=== PATIENT | female | born 1935 | race African-American/Black ===

== ENCOUNTER 2017-04-03 15:00 | Emergency (ER) | payer MEDICARE ==
[2017-04-03 16:26] LABS: ADD MAN DIFF? YES; BASO % 0 % (0-3); EOS # 0.1 x10^3/uL (0.0-0.7); EOS % 0 % (0-3); HEMATOCRIT 44.7 % (36.0-47.0); HEMOGLOBIN 14.4 g/dL (12.0-15.5); LYMPH # 1.2 x10^3/uL (1.0-4.8); LYMPH % 7 % (24-48); MEAN CORPUSCULAR HEMOGLOBIN 26 pg (25-35); MEAN CORPUSCULAR HGB CONC 32 g/dL (31-37); MEAN CORPUSCULAR VOLUME 79 fL (79-100); MONO # 1.3 x10^3/uL (0.0-1.1); MONO % 7 % (0-9); NEUT # 14.7 x10^3uL (1.8-7.7); NEUT % 85 % (31-73); PLATELET COUNT 330 x10^3/uL (140-400); RED BLOOD COUNT 5.63 x10^6/uL (3.50-5.40); RED CELL DISTRIBUTION WIDTH 18.1 % (11.5-14.5); WHITE BLOOD COUNT 17.3 x10^3/uL (4.0-11.0)
[2017-04-03 16:37] LABS: INR 1.3 (0.8-1.1); PROTHROMBIN TIME PATIENT 15.1 SEC (11.7-14.0)
[2017-04-03 16:47] LABS: ANION GAP 8 (6-14); BLOOD UREA NITROGEN 42 mg/dL (7-20); BUN/CREATININE RATIO 12 (6-20); CALCIUM 9.7 mg/dL (8.5-10.1); CARBON DIOXIDE 29 mmol/L (21-32); CHLORIDE 93 mmol/L (98-107); CREATININE 3.4 mg/dL (0.6-1.0); GFR 15.7; GLUCOSE 103 mg/dL (70-99); POTASSIUM 5.3 mmol/L (3.5-5.1); SODIUM 130 mmol/L (136-145)
[2017-04-03 16:52] LABS: ALBUMIN 3.5 g/dL (3.4-5.0); ALBUMIN/GLOBULIN RATIO 0.7 (1.0-1.7); ALK PHOS 129 U/L (46-116); ALT (SGPT) 16 U/L (14-59); AST (SGOT) 23 U/L (15-37); TOTAL BILIRUBIN 0.5 mg/dL (0.2-1.0); TOTAL PROTEIN 8.6 g/dL (6.4-8.2)
[2017-04-03 16:59] LABS: % BANDS 2 % (0-9); % BASOS 1 % (0-3); % LYMPHS 11 % (24-48); % MONOS 10 % (0-10); % SEGS 76 % (35-66); ANISOCYTOSIS SLIGHT; PLT ESTIMATE ADEQUATE (ADEQUATE)
[2017-04-03 17:21] LABS: INFLUENZA B PATIENT NEGATIVE (NEGATIVE)
[2017-04-03 17:22] LABS: OBC FLU VALID
[2017-04-03 17:32] LABS: INFLUENZA A PATIENT NEGATIVE (NEGATIVE)
== END 2017-04-03 19:18 | disposition home or self-care (01) ==
LOC: ER 15:00
DX: R04.0 Epistaxis (principal); E11.22 Type 2 diabetes mellitus with diabetic chronic kidney disease; N18.6 End stage renal disease; E78.00 Pure hypercholesterolemia, unspecified; I12.0 Hypertensive chronic kidney disease with stage 5 chronic kidney disease or end stage renal disease; Z90.49 Acquired absence of other specified parts of digestive tract; Z90.710 Acquired absence of both cervix and uterus; Z99.2 Dependence on renal dialysis; Z88.1 Allergy status to other antibiotic agents; Z88.8 Allergy status to other drugs, medicaments and biological substances; Z91.041 Radiographic dye allergy status
CPT/HCPCS: 30901; 36415; 71045; 80053; 85007; 85025; 85610; 87804; 87804-59; 99285-25

== ENCOUNTER 2017-04-04 13:01 | Inpatient (IN) | payer MEDICARE ==
[2017-04-04 14:48] LABS: HEMATOCRIT 42.5 % (36.0-47.0); HEMOGLOBIN 13.5 g/dL (12.0-15.5); MEAN CORPUSCULAR HEMOGLOBIN 25 pg (25-35); MEAN CORPUSCULAR HGB CONC 32 g/dL (31-37); MEAN CORPUSCULAR VOLUME 79 fL (79-100); PLATELET COUNT 325 x10^3/uL (140-400); RED BLOOD COUNT 5.38 x10^6/uL (3.50-5.40); RED CELL DISTRIBUTION WIDTH 17.9 % (11.5-14.5); WHITE BLOOD COUNT 13.6 x10^3/uL (4.0-11.0)
[2017-04-04 15:02] LABS: ANION GAP 13 (6-14); BLOOD UREA NITROGEN 54 mg/dL (7-20); BUN/CREATININE RATIO 14 (6-20); CALCIUM 9.4 mg/dL (8.5-10.1); CARBON DIOXIDE 26 mmol/L (21-32); CHLORIDE 91 mmol/L (98-107); GLUCOSE 123 mg/dL (70-99); POTASSIUM 5.2 mmol/L (3.5-5.1); SODIUM 130 mmol/L (136-145)
[2017-04-04 15:06] LABS: ALBUMIN 3.2 g/dL (3.4-5.0); ALBUMIN/GLOBULIN RATIO 0.7 (1.0-1.7); ALK PHOS 121 U/L (46-116); ALT (SGPT) 11 U/L (14-59); AST (SGOT) 23 U/L (15-37); TOTAL BILIRUBIN 0.5 mg/dL (0.2-1.0); TOTAL PROTEIN 7.9 g/dL (6.4-8.2)
[2017-04-04] MEDS ORDERED: ONDANSETRON PF 4 MG/2 ML VIAL. IV (16:30)
[2017-04-04] MEDS ORDERED: fentaNYL PF VIAL 100 MCG/2 ML VIAL IV (16:30)
[2017-04-04 20:31] LABS: POC GLUCOSE 69 mg/dL (70-99)
[2017-04-04 20:34] LABS: POC GLUCOSE 87 mg/dL (70-99)
[2017-04-04] MEDS ORDERED: ACETAMINOPHEN 500 MG TABLET PO (21:00)
[2017-04-04] MEDS ORDERED: DEXTROSE 50% 25 GM / 50ML DISP.SYRIN. IV (21:00)
[2017-04-04] MEDS: CARVEDILOL 6.25 MG TABLET. PO (21:26)
[2017-04-05 04:19] LABS: POC GLUCOSE 119 mg/dL (70-99)
[2017-04-05 06:05] LABS: ADD MAN DIFF? NO
[2017-04-05 06:29] LABS: ANION GAP 14 (6-14); BLOOD UREA NITROGEN 57 mg/dL (7-20); CALCIUM 9.3 mg/dL (8.5-10.1); CARBON DIOXIDE 23 mmol/L (21-32); CHLORIDE 92 mmol/L (98-107); CREATININE 4.2 mg/dL (0.6-1.0); GFR 12.3; GLUCOSE 148 mg/dL (70-99); POTASSIUM 5.4 mmol/L (3.5-5.1); SODIUM 129 mmol/L (136-145)
[2017-04-05 06:32] LABS: BASO # 0.1 x10^3/uL (0.0-0.2); BASO % 0 % (0-3); EOS % 0 % (0-3); HEMATOCRIT 44.6 % (36.0-47.0); HEMOGLOBIN 13.8 g/dL (12.0-15.5); LYMPH # 0.9 x10^3/uL (1.0-4.8); LYMPH % 4 % (24-48); MEAN CORPUSCULAR HEMOGLOBIN 25 pg (25-35); MEAN CORPUSCULAR HGB CONC 31 g/dL (31-37); MEAN CORPUSCULAR VOLUME 79 fL (79-100); MONO # 1.8 x10^3/uL (0.0-1.1); MONO % 8 % (0-9); NEUT # 18.9 x10^3uL (1.8-7.7); NEUT % 87 % (31-73); PLATELET COUNT 336 x10^3/uL (140-400); RED BLOOD COUNT 5.64 x10^6/uL (3.50-5.40); WHITE BLOOD COUNT 21.6 x10^3/uL (4.0-11.0)
[2017-04-05] MEDS ORDERED: fentaNYL PF VIAL 100 MCG/2 ML VIAL IV (07:45)
[2017-04-05] MEDS ORDERED: ONDANSETRON PF 4 MG/2 ML VIAL. IV (07:45)
[2017-04-05 08:03] LABS: POC GLUCOSE 127 mg/dL (70-99)
[2017-04-05] MEDS: ACETAMINOPHEN 500 MG TABLET PO ×2 (08:11→20:20)
[2017-04-05] MEDS: LISINOPRIL 10 MG TABLET PO (08:12)
[2017-04-05 08:24] LABS: BILIRUBIN,URINE NEGATIVE (NEG); CLARITY,URINE CLEAR; COLOR,URINE YELLOW; GLUCOSE,URINE NEGATIVE (NEG); NITRITE,URINE NEGATIVE (NEG); PROTEIN,URINE >=300 mg/dL (NEG-TRACE)
[2017-04-05 08:44] LABS: INFLUENZA A PATIENT NEGATIVE (NEGATIVE); INFLUENZA B PATIENT NEGATIVE (NEGATIVE); OBC FLU VALID
[2017-04-05] MEDS ORDERED: ASPIRIN ENTERIC COATED 81 MG TABLET.DR. PO (09:00)
[2017-04-05] MEDS ORDERED: MEROPENEM 500 MG in IV NORMAL SALINE 50ML 50 ML IV (09:00)
[2017-04-05] MEDS: IPRATRPIUM/ALBUTEROL 0.5/2.5MG 3 ML NEBU. NEB ×4 (09:00→19:58)
[2017-04-05] MEDS ORDERED: TACROLIMUS 1 MG CAPSULE PO (09:00)
[2017-04-05 09:10] LABS: BACTERIA,URINE 0 /HPF (0-FEW); RBC,URINE 0 /HPF (0-2); SQUAMOUS EPITHELIAL CELL,UR FEW /LPF; WBC,URINE 0 /HPF (0-4)
[2017-04-05] MEDS ORDERED: diphenhydrAMINE 50 MG/ML VIAL IV ×2 (09:30)
[2017-04-05] MEDS ORDERED: IV NORMAL SALINE 1000ML BAG 1,000 ML IV ×2 (09:30)
[2017-04-05] MEDS ORDERED: 0.9 % SODIUM CHLORIDE 10 ML DISP.SYRIN. IV ×2 (09:30)
[2017-04-05] MEDS ORDERED: DIALYSIS PATIENT. MC ×5 (09:30)
[2017-04-05] MEDS: PANTOPRAZOLE 40 MG TABLET.DR. PO (09:34)
[2017-04-05] MEDS: TACROLIMUS 0.5 MG CAPSULE PO ×2 (09:34→20:20)
[2017-04-05] MEDS: predniSONE 5 MG TABLET PO (09:34)
[2017-04-05] MEDS: LEVOTHYROXINE 125 MCG TABLET PO (09:34)
[2017-04-05] MEDS: POLYETHYLENE GLYCOL 3350 17 GM PACKET. PO (09:35)
[2017-04-05] MEDS: TIMOLOL 0.25% OPHTH SOLUTION 5ML BOTTLE. OD (09:35)
[2017-04-05] MEDS ORDERED: MAGNESIUM SULFATE 2GM 50 ML IV (09:45)
[2017-04-05] MEDS: MEROPENEM IV Push 500 MG VIAL. IVP (14:04)
[2017-04-05] MEDS: VANCOMYCIN PER PHARMACY MC (14:06)
[2017-04-05] MEDS: VANCOMYCIN IV (14:17)
[2017-04-05] MEDS: NACL IV (14:17)
[2017-04-05] MEDS: DEXTROSE IV (14:17)
[2017-04-05] MEDS: IOHEXOL 300 MG/ML 100ML VIAL. IV (16:30)
[2017-04-05] MEDS ORDERED: CONTRAST GIVEN MC (16:30)
[2017-04-05 18:33] LABS: POC GLUCOSE 129 mg/dL (70-99)
[2017-04-05] MEDS: FOLIC/VIT B COMP W-C (RENAL) TABLET. PO (20:20)
[2017-04-05] MEDS: LACTOBACILLUS RHAMNOSUS GG 1 CAPSULE. PO (20:20)
[2017-04-05] MEDS: CETIRIZINE HCL 10 MG TABLET. PO (20:21)
[2017-04-05 20:28] LABS: POC GLUCOSE 167 mg/dL (70-99)
[2017-04-05 20:37] LABS: POC GLUCOSE 172 mg/dL (70-99)
[2017-04-05] MEDS: CARVEDILOL 6.25 MG TABLET. PO (21:14)
[2017-04-06 03:01] LABS: POC GLUCOSE 98 mg/dL (70-99)
[2017-04-06] MEDS: diphenhydrAMINE HCL 25 MG CAPSULE PO (04:04)
[2017-04-06] MEDS: methylPREDNISolone SOD SUCC PF 125 MG/2 ML VIAL. IV (04:04)
[2017-04-06 04:34] LABS: ADD MAN DIFF? NO
[2017-04-06 04:38] LABS: BASO # 0.1 x10^3/uL (0.0-0.2); BASO % 1 % (0-3); EOS # 0.1 x10^3/uL (0.0-0.7); EOS % 0 % (0-3); HEMATOCRIT 39.4 % (36.0-47.0); HEMOGLOBIN 12.4 g/dL (12.0-15.5); LYMPH # 1.3 x10^3/uL (1.0-4.8); LYMPH % 7 % (24-48); MEAN CORPUSCULAR HEMOGLOBIN 25 pg (25-35); MEAN CORPUSCULAR HGB CONC 31 g/dL (31-37); MEAN CORPUSCULAR VOLUME 80 fL (79-100); MONO # 2.5 x10^3/uL (0.0-1.1); MONO % 12 % (0-9); NEUT # 16.4 x10^3uL (1.8-7.7); NEUT % 80 % (31-73); PLATELET COUNT 306 x10^3/uL (140-400); RED BLOOD COUNT 4.96 x10^6/uL (3.50-5.40); RED CELL DISTRIBUTION WIDTH 17.5 % (11.5-14.5); WHITE BLOOD COUNT 20.4 x10^3/uL (4.0-11.0)
[2017-04-06 05:02] LABS: MAGNESIUM 2.1 mg/dL (1.8-2.4)
[2017-04-06 05:06] LABS: ALBUMIN 2.7 g/dL (3.4-5.0); ANION GAP 8 (6-14); BLOOD UREA NITROGEN 28 mg/dL (7-20); CALCIUM 8.8 mg/dL (8.5-10.1); CARBON DIOXIDE 32 mmol/L (21-32); CHLORIDE 94 mmol/L (98-107); GFR 18.2; GLUCOSE 90 mg/dL (70-99); PHOSPHORUS 5.1 mg/dL (2.6-4.7); POTASSIUM 4.1 mmol/L (3.5-5.1); SODIUM 134 mmol/L (136-145)
[2017-04-06] MEDS: PANTOPRAZOLE 40 MG TABLET.DR. PO (05:51)
[2017-04-06] MEDS: LEVOTHYROXINE 125 MCG TABLET PO (05:51)
[2017-04-06] MEDS: ACETAMINOPHEN 500 MG TABLET PO ×2 (05:57→20:55)
[2017-04-06] MEDS ORDERED: IV NORMAL SALINE 1000ML BAG 1,000 ML IV ×2 (07:03)
[2017-04-06] MEDS ORDERED: diphenhydrAMINE 50 MG/ML VIAL IV ×2 (07:15)
[2017-04-06] MEDS ORDERED: 0.9 % SODIUM CHLORIDE 10 ML DISP.SYRIN. IV ×2 (07:15)
[2017-04-06] MEDS ORDERED: DIALYSIS PATIENT. MC (07:15)
[2017-04-06] MEDS: IPRATRPIUM/ALBUTEROL 0.5/2.5MG 3 ML NEBU. NEB ×4 (07:33→20:22)
[2017-04-06 07:48] LABS: POC GLUCOSE 197 mg/dL (70-99)
[2017-04-06] MEDS: POLYETHYLENE GLYCOL 3350 17 GM PACKET. PO (09:00)
[2017-04-06] MEDS: MEROPENEM IV Push 500 MG VIAL. IVP (12:43)
[2017-04-06] MEDS: TIMOLOL 0.25% OPHTH SOLUTION 5ML BOTTLE. OD (12:43)
[2017-04-06] MEDS: predniSONE 5 MG TABLET PO (12:44)
[2017-04-06] MEDS: LACTOBACILLUS RHAMNOSUS GG 1 CAPSULE. PO ×2 (12:44→20:49)
[2017-04-06] MEDS: TACROLIMUS 0.5 MG CAPSULE PO ×2 (12:44→20:48)
[2017-04-06] MEDS: LISINOPRIL 10 MG TABLET PO (12:48)
[2017-04-06 12:50] LABS: POC GLUCOSE 163 mg/dL (70-99)
[2017-04-06 16:44] LABS: POC GLUCOSE 293 mg/dL (70-99)
[2017-04-06] MEDS: VANCOMYCIN RANDOM LEVEL. MC (17:00)
[2017-04-06] MEDS ORDERED: DEXTROSE 50% 25 GM / 50ML DISP.SYRIN. IV (18:30)
[2017-04-06] MEDS: INSULIN ASPART 300 UNITS/3 ML INSULN.PEN SQ (18:44)
[2017-04-06] MEDS: VANCOMYCIN PER PHARMACY MC ×2 (19:30→19:33)
[2017-04-06] MEDS: VANCOMYCIN 500 MG in IV DEXTROSE 5% 100 ML IV (20:48)
[2017-04-06] MEDS: FOLIC/VIT B COMP W-C (RENAL) TABLET. PO (20:49)
[2017-04-06] MEDS: CETIRIZINE HCL 10 MG TABLET. PO (20:49)
[2017-04-06] MEDS: CARVEDILOL 6.25 MG TABLET. PO (20:49)
[2017-04-07 05:18] LABS: ADD MAN DIFF? NO
[2017-04-07 06:04] LABS: MAGNESIUM 2.4 mg/dL (1.8-2.4)
[2017-04-07 06:07] LABS: ALBUMIN 3.1 g/dL (3.4-5.0); ANION GAP 14 (6-14); BLOOD UREA NITROGEN 19 mg/dL (7-20); CALCIUM 9.2 mg/dL (8.5-10.1); CARBON DIOXIDE 27 mmol/L (21-32); CHLORIDE 93 mmol/L (98-107); CREATININE 2.1 mg/dL (0.6-1.0); GFR 27.4; GLUCOSE 283 mg/dL (70-99); PHOSPHORUS 4.2 mg/dL (2.6-4.7); POTASSIUM 4.1 mmol/L (3.5-5.1); SODIUM 134 mmol/L (136-145)
[2017-04-07 06:12] LABS: BASO # 0.1 x10^3/uL (0.0-0.2); BASO % 0 % (0-3); EOS % 0 % (0-3); HEMOGLOBIN 13.2 g/dL (12.0-15.5); LYMPH # 0.9 x10^3/uL (1.0-4.8); LYMPH % 5 % (24-48); MEAN CORPUSCULAR HEMOGLOBIN 24 pg (25-35); MEAN CORPUSCULAR HGB CONC 30 g/dL (31-37); MEAN CORPUSCULAR VOLUME 81 fL (79-100); MONO # 0.2 x10^3/uL (0.0-1.1); MONO % 1 % (0-9); NEUT % 94 % (31-73); PLATELET COUNT 358 x10^3/uL (140-400); RED BLOOD COUNT 5.43 x10^6/uL (3.50-5.40); RED CELL DISTRIBUTION WIDTH 18.5 % (11.5-14.5); WHITE BLOOD COUNT 18.2 x10^3/uL (4.0-11.0)
[2017-04-07] MEDS: LEVOTHYROXINE 125 MCG TABLET PO (07:23)
[2017-04-07] MEDS: POLYETHYLENE GLYCOL 3350 17 GM PACKET. PO (07:42)
[2017-04-07] MEDS: TACROLIMUS 0.5 MG CAPSULE PO ×2 (08:03→20:32)
[2017-04-07] MEDS: predniSONE 5 MG TABLET PO (08:03)
[2017-04-07] MEDS: LACTOBACILLUS RHAMNOSUS GG 1 CAPSULE. PO (08:03)
[2017-04-07] MEDS: PANTOPRAZOLE 40 MG TABLET.DR. PO (08:03)
[2017-04-07] MEDS: TIMOLOL 0.25% OPHTH SOLUTION 5ML BOTTLE. OD (08:04)
[2017-04-07] MEDS: LISINOPRIL 10 MG TABLET PO ×3 (08:04→16:00)
[2017-04-07] MEDS: MEROPENEM IV Push 500 MG VIAL. IVP (08:04)
[2017-04-07] MEDS: INSULIN ASPART 300 UNITS/3 ML INSULN.PEN SQ ×4 (08:11→16:56)
[2017-04-07 08:21] LABS: POC GLUCOSE 210 mg/dL (70-99)
[2017-04-07] MEDS: IPRATRPIUM/ALBUTEROL 0.5/2.5MG 3 ML NEBU. NEB ×4 (09:24→19:12)
[2017-04-07 11:38] LABS: POC GLUCOSE 230 mg/dL (70-99)
[2017-04-07] MEDS: ACETAMINOPHEN 500 MG TABLET PO (11:54)
[2017-04-07] MEDS: VANCOMYCIN PER PHARMACY MC (13:02)
[2017-04-07 16:43] LABS: POC GLUCOSE 272 mg/dL (70-99)
[2017-04-07] MEDS: FOLIC/VIT B COMP W-C (RENAL) TABLET. PO (20:32)
[2017-04-07] MEDS: CARVEDILOL 6.25 MG TABLET. PO (20:32)
[2017-04-07] MEDS: CETIRIZINE HCL 10 MG TABLET. PO (20:32)
[2017-04-07 20:44] LABS: POC GLUCOSE 171 mg/dL (70-99)
[2017-04-08 01:50] LABS: POC GLUCOSE 185 mg/dL (70-99)
[2017-04-08] MEDS: LEVOTHYROXINE 125 MCG TABLET PO (05:31)
[2017-04-08] MEDS: PANTOPRAZOLE 40 MG TABLET.DR. PO (05:31)
[2017-04-08 05:57] LABS: ADD MAN DIFF? NO
[2017-04-08 06:14] LABS: BASO # 0.2 x10^3/uL (0.0-0.2); BASO % 1 % (0-3); EOS % 0 % (0-3); HEMATOCRIT 40.7 % (36.0-47.0); HEMOGLOBIN 12.5 g/dL (12.0-15.5); LYMPH # 1.6 x10^3/uL (1.0-4.8); LYMPH % 7 % (24-48); MEAN CORPUSCULAR HEMOGLOBIN 25 pg (25-35); MEAN CORPUSCULAR HGB CONC 31 g/dL (31-37); MEAN CORPUSCULAR VOLUME 80 fL (79-100); MONO # 1.5 x10^3/uL (0.0-1.1); MONO % 7 % (0-9); NEUT # 18.1 x10^3uL (1.8-7.7); NEUT % 85 % (31-73); PLATELET COUNT 390 x10^3/uL (140-400); RED BLOOD COUNT 5.07 x10^6/uL (3.50-5.40); RED CELL DISTRIBUTION WIDTH 17.9 % (11.5-14.5); WHITE BLOOD COUNT 21.4 x10^3/uL (4.0-11.0)
[2017-04-08 06:44] LABS: ALBUMIN 3.1 g/dL (3.4-5.0); ANION GAP 13 (6-14); BLOOD UREA NITROGEN 44 mg/dL (7-20); CALCIUM 9.5 mg/dL (8.5-10.1); CARBON DIOXIDE 26 mmol/L (21-32); CHLORIDE 97 mmol/L (98-107); CREATININE 3.3 mg/dL (0.6-1.0); GFR 16.3; GLUCOSE 137 mg/dL (70-99); PHOSPHORUS 4.1 mg/dL (2.6-4.7); SODIUM 136 mmol/L (136-145)
[2017-04-08 06:47] LABS: MAGNESIUM 2.5 mg/dL (1.8-2.4)
[2017-04-08] MEDS: IPRATRPIUM/ALBUTEROL 0.5/2.5MG 3 ML NEBU. NEB ×4 (07:18→18:07)
[2017-04-08] MEDS: INSULIN ASPART 300 UNITS/3 ML INSULN.PEN SQ ×3 (07:30→16:53)
[2017-04-08 08:22] LABS: POC GLUCOSE 110 mg/dL (70-99)
[2017-04-08] MEDS: LISINOPRIL 10 MG TABLET PO ×2 (08:22→16:50)
[2017-04-08] MEDS: TACROLIMUS 0.5 MG CAPSULE PO ×2 (08:22→20:27)
[2017-04-08] MEDS: predniSONE 5 MG TABLET PO (08:23)
[2017-04-08] MEDS: TIMOLOL 0.25% OPHTH SOLUTION 5ML BOTTLE. OD (08:23)
[2017-04-08] MEDS: MEROPENEM IV Push 500 MG VIAL. IVP (08:23)
[2017-04-08] MEDS: POLYETHYLENE GLYCOL 3350 17 GM PACKET. PO (08:39)
[2017-04-08] MEDS: VANCOMYCIN PER PHARMACY MC (10:10)
[2017-04-08 11:35] LABS: FECAL OB PT POSITIVE (NEG); NEG OBC FOB NEG; POS OBC FOB POS
[2017-04-08] MEDS: ACETAMINOPHEN 500 MG TABLET PO ×2 (11:35→20:32)
[2017-04-08] MEDS: COLESTIPOL HCL 1 GM TABLET PO ×2 (11:35→20:27)
[2017-04-08] MEDS: LACTOBACILLUS RHAMNOSUS GG 1 CAPSULE. PO ×2 (11:35→20:27)
[2017-04-08 12:10] LABS: POC GLUCOSE 135 mg/dL (70-99)
[2017-04-08 16:43] LABS: POC GLUCOSE 210 mg/dL (70-99)
[2017-04-08] MEDS: CARVEDILOL 6.25 MG TABLET. PO (20:27)
[2017-04-08] MEDS: FOLIC/VIT B COMP W-C (RENAL) TABLET. PO (20:27)
[2017-04-08] MEDS: CETIRIZINE HCL 10 MG TABLET. PO (20:28)
[2017-04-08 20:46] LABS: POC GLUCOSE 192 mg/dL (70-99)
[2017-04-08 23:08] LABS: C DIFF BY PCR Negative (Negative)
[2017-04-09] MEDS: LEVOTHYROXINE 125 MCG TABLET PO (04:55)
[2017-04-09] MEDS: PANTOPRAZOLE 40 MG TABLET.DR. PO (04:55)
[2017-04-09 07:23] LABS: POC GLUCOSE 220 mg/dL (70-99)
[2017-04-09] MEDS: IPRATRPIUM/ALBUTEROL 0.5/2.5MG 3 ML NEBU. NEB ×4 (07:25→19:40)
[2017-04-09] MEDS: INSULIN ASPART 300 UNITS/3 ML INSULN.PEN SQ ×3 (07:58→17:02)
[2017-04-09 08:19] LABS: ADD MAN DIFF? NO
[2017-04-09 08:27] LABS: BASO # 0.1 x10^3/uL (0.0-0.2); BASO % 1 % (0-3); EOS % 0 % (0-3); HEMATOCRIT 39.8 % (36.0-47.0); HEMOGLOBIN 12.5 g/dL (12.0-15.5); LYMPH # 1.1 x10^3/uL (1.0-4.8); LYMPH % 6 % (24-48); MEAN CORPUSCULAR HEMOGLOBIN 25 pg (25-35); MEAN CORPUSCULAR HGB CONC 31 g/dL (31-37); MEAN CORPUSCULAR VOLUME 80 fL (79-100); MONO # 1.6 x10^3/uL (0.0-1.1); MONO % 9 % (0-9); NEUT # 14.4 x10^3uL (1.8-7.7); NEUT % 83 % (31-73); PLATELET COUNT 404 x10^3/uL (140-400); RED BLOOD COUNT 4.96 x10^6/uL (3.50-5.40); RED CELL DISTRIBUTION WIDTH 17.6 % (11.5-14.5); WHITE BLOOD COUNT 17.3 x10^3/uL (4.0-11.0)
[2017-04-09 08:45] LABS: ALBUMIN 2.8 g/dL (3.4-5.0); ANION GAP 13 (6-14); BLOOD UREA NITROGEN 52 mg/dL (7-20); CALCIUM 9.5 mg/dL (8.5-10.1); CARBON DIOXIDE 25 mmol/L (21-32); CHLORIDE 99 mmol/L (98-107); CREATININE 3.9 mg/dL (0.6-1.0); GFR 13.4; GLUCOSE 224 mg/dL (70-99); MAGNESIUM 2.4 mg/dL (1.8-2.4); PHOSPHORUS 3.7 mg/dL (2.6-4.7); POTASSIUM 3.8 mmol/L (3.5-5.1); SODIUM 137 mmol/L (136-145)
[2017-04-09] MEDS: POLYETHYLENE GLYCOL 3350 17 GM PACKET. PO (09:00)
[2017-04-09] MEDS: LACTOBACILLUS RHAMNOSUS GG 1 CAPSULE. PO (09:00)
[2017-04-09] MEDS ORDERED: DIALYSIS PATIENT. MC ×2 (09:45)
[2017-04-09] MEDS: COLESTIPOL HCL 1 GM TABLET PO (10:00)
[2017-04-09] MEDS: ACETAMINOPHEN 500 MG TABLET PO ×2 (10:49→22:29)
[2017-04-09 12:50] LABS: POC GLUCOSE 142 mg/dL (70-99)
[2017-04-09] MEDS: predniSONE 5 MG TABLET PO (13:12)
[2017-04-09] MEDS: TACROLIMUS 0.5 MG CAPSULE PO ×2 (13:12→20:45)
[2017-04-09] MEDS: LISINOPRIL 10 MG TABLET PO (13:13)
[2017-04-09] MEDS: CIPROFLOXACIN 0.3% OPHTH SOLUTION 5ML BOTTLE. OU ×3 (13:14→20:45)
[2017-04-09] MEDS: TIMOLOL 0.25% OPHTH SOLUTION 5ML BOTTLE. OD ×2 (13:14→20:44)
[2017-04-09] MEDS: MEROPENEM IV Push 500 MG VIAL. IVP (13:14)
[2017-04-09 16:30] LABS: POC GLUCOSE 250 mg/dL (70-99)
[2017-04-09] MEDS: VANCOMYCIN 500 MG in IV NORMAL SALINE 100ML 100 ML IV (16:58)
[2017-04-09] MEDS: VANCOMYCIN PER PHARMACY MC (17:08)
[2017-04-09 19:59] LABS: POC GLUCOSE 143 mg/dL (70-99)
[2017-04-09] MEDS: FOLIC/VIT B COMP W-C (RENAL) TABLET. PO (20:45)
[2017-04-09] MEDS: CETIRIZINE HCL 10 MG TABLET. PO (20:46)
[2017-04-09] MEDS: CARVEDILOL 6.25 MG TABLET. PO (20:46)
[2017-04-10 04:43] LABS: ADD MAN DIFF? NO
[2017-04-10 04:45] LABS: BASO # 0.1 x10^3/uL (0.0-0.2); BASO % 0 % (0-3); EOS % 0 % (0-3); HEMATOCRIT 40.1 % (36.0-47.0); HEMOGLOBIN 12.4 g/dL (12.0-15.5); LYMPH # 1.4 x10^3/uL (1.0-4.8); LYMPH % 7 % (24-48); MEAN CORPUSCULAR HEMOGLOBIN 25 pg (25-35); MEAN CORPUSCULAR HGB CONC 31 g/dL (31-37); MEAN CORPUSCULAR VOLUME 80 fL (79-100); MONO # 1.3 x10^3/uL (0.0-1.1); MONO % 7 % (0-9); NEUT # 15.9 x10^3uL (1.8-7.7); NEUT % 85 % (31-73); PLATELET COUNT 389 x10^3/uL (140-400); RED BLOOD COUNT 5.03 x10^6/uL (3.50-5.40); RED CELL DISTRIBUTION WIDTH 17.5 % (11.5-14.5); WHITE BLOOD COUNT 18.8 x10^3/uL (4.0-11.0)
[2017-04-10 05:31] LABS: ALBUMIN 2.8 g/dL (3.4-5.0); ANION GAP 9 (6-14); BLOOD UREA NITROGEN 35 mg/dL (7-20); CARBON DIOXIDE 30 mmol/L (21-32); CHLORIDE 98 mmol/L (98-107); CREATININE 2.9 mg/dL (0.6-1.0); GFR 18.9; GLUCOSE 147 mg/dL (70-99); MAGNESIUM 2.2 mg/dL (1.8-2.4); POTASSIUM 3.8 mmol/L (3.5-5.1); SODIUM 137 mmol/L (136-145)
[2017-04-10] MEDS: LEVOTHYROXINE 125 MCG TABLET PO (05:48)
[2017-04-10] MEDS: PANTOPRAZOLE 40 MG TABLET.DR. PO (05:48)
[2017-04-10] MEDS: INSULIN ASPART 300 UNITS/3 ML INSULN.PEN SQ ×2 (07:30→12:09)
[2017-04-10 07:52] LABS: POC GLUCOSE 96 mg/dL (70-99)
[2017-04-10] MEDS: TACROLIMUS 0.5 MG CAPSULE PO (08:14)
[2017-04-10] MEDS: predniSONE 5 MG TABLET PO (08:14)
[2017-04-10] MEDS: TIMOLOL 0.25% OPHTH SOLUTION 5ML BOTTLE. OD (08:15)
[2017-04-10] MEDS: CIPROFLOXACIN 0.3% OPHTH SOLUTION 5ML BOTTLE. OU ×3 (08:15→12:10)
[2017-04-10] MEDS: MEROPENEM IV Push 500 MG VIAL. IVP (08:17)
[2017-04-10] MEDS: POLYETHYLENE GLYCOL 3350 17 GM PACKET. PO (08:29)
[2017-04-10] MEDS: IPRATRPIUM/ALBUTEROL 0.5/2.5MG 3 ML NEBU. NEB ×2 (08:52→11:58)
[2017-04-10] MEDS: ACETAMINOPHEN 500 MG TABLET PO (09:05)
[2017-04-10] MEDS: LISINOPRIL 10 MG TABLET PO ×2 (10:41→15:54)
[2017-04-10 11:47] LABS: POC GLUCOSE 174 mg/dL (70-99)
[2017-04-10] MEDS: CEFPODOXIME PROXETIL 100 MG TABLET. PO (14:19)
[2017-04-10 16:35] LABS: POC GLUCOSE 225 mg/dL (70-99)
[2017-04-10] MEDS ORDERED: LACTOBACILLUS RHAMNOSUS GG 1 CAPSULE. PO (21:00)
[2017-04-10] MEDS ORDERED: TACROLIMUS 0.5 MG CAPSULE PO (21:00)
== END 2017-04-10 16:30 | DRG 871 ==
LOC: ER 13:01 → 5 NORTH 16:20
PROC: 5A1D70Z Performance of Urinary Filtration, Intermittent, Less than 6 Hours Per Day (ICD-10-PCS; principal; 2017-04-05)
PROC: 5A1D70Z Performance of Urinary Filtration, Intermittent, Less than 6 Hours Per Day (ICD-10-PCS; 2017-04-06)
PROC: 5A1D70Z Performance of Urinary Filtration, Intermittent, Less than 6 Hours Per Day (ICD-10-PCS; 2017-04-09)
DX: A41.89 Other specified sepsis (principal); N18.6 End stage renal disease; E43 Unspecified severe protein-calorie malnutrition; I13.2 Hypertensive heart and chronic kidney disease with heart failure and with stage 5 chronic kidney disease, or end stage renal disease; J18.9 Pneumonia, unspecified organism; E46 Unspecified protein-calorie malnutrition; E11.22 Type 2 diabetes mellitus with diabetic chronic kidney disease; E87.5 Hyperkalemia; I50.30 Unspecified diastolic (congestive) heart failure; M41.9 Scoliosis, unspecified; N28.1 Cyst of kidney, acquired; E87.1 Hypo-osmolality and hyponatremia; Z94.0 Kidney transplant status; D63.1 Anemia in chronic kidney disease; D49.0 Neoplasm of unspecified behavior of digestive system; E03.9 Hypothyroidism, unspecified; E55.9 Vitamin D deficiency, unspecified; E78.5 Hyperlipidemia, unspecified; E87.6 Hypokalemia; H40.9 Unspecified glaucoma; I70.0 Atherosclerosis of aorta; J01.90 Acute sinusitis, unspecified; J32.2 Chronic ethmoidal sinusitis; J40 Bronchitis, not specified as acute or chronic; K57.90 Diverticulosis of intestine, part unspecified, without perforation or abscess without bleeding; K59.09 Other constipation; M19.90 Unspecified osteoarthritis, unspecified site; K59.00 Constipation, unspecified; R04.0 Epistaxis; Z88.0 Allergy status to penicillin; Z90.49 Acquired absence of other specified parts of digestive tract; Z90.710 Acquired absence of both cervix and uterus; Z99.2 Dependence on renal dialysis
CPT/HCPCS: 36415; 70220; 70470; 70488; 71045; 71250; 76700; 76856; 80048; 80053; 80069; 80202; 81001; 82274; 82962; 83735; 85007; 85025; 85027; 85610; 87040; 87324; 87804; 87804-59; 93306; 94640; 96374; 96375; 97116-GP; 97162-GP; 97165-GO; 99285; 99285-25; J1815; J2185; J2930; J3370; J7507; J7512; J7620; Q0163; Q9967

== ENCOUNTER 2017-04-26 10:27 | Inpatient (IN) | payer MEDICARE ==
[2017-04-26 10:48] LABS: ADD MAN DIFF? NO
[2017-04-26] MEDS: ACETAMINOPHEN 500 MG TABLET PO ×4 (10:50→20:55)
[2017-04-26] MEDS: IV NORMAL SALINE 500ML BAG 500 ML IV ×2 (10:50)
[2017-04-26 11:01] LABS: ANION GAP 11 (6-14); BLOOD UREA NITROGEN 43 mg/dL (7-20); BUN/CREATININE RATIO 14 (6-20); CALCIUM 9.1 mg/dL (8.5-10.1); CARBON DIOXIDE 28 mmol/L (21-32); CHLORIDE 94 mmol/L (98-107); CREATININE 3.1 mg/dL (0.6-1.0); GFR 17.5; GLUCOSE 129 mg/dL (70-99); INFLUENZA A PATIENT NEGATIVE (NEGATIVE); INFLUENZA B PATIENT NEGATIVE (NEGATIVE); OBC FLU VALID; POTASSIUM 4.7 mmol/L (3.5-5.1); SODIUM 133 mmol/L (136-145)
[2017-04-26 11:08] LABS: ALBUMIN 3.3 g/dL (3.4-5.0); ALBUMIN/GLOBULIN RATIO 0.7 (1.0-1.7); ALK PHOS 135 U/L (46-116); ALT (SGPT) 21 U/L (14-59); AST (SGOT) 29 U/L (15-37); TOTAL BILIRUBIN 0.7 mg/dL (0.2-1.0)
[2017-04-26 11:09] LABS: INR 1.4 (0.8-1.1); PROTHROMBIN TIME PATIENT 16.4 SEC (11.7-14.0)
[2017-04-26 11:09] LABS: LACTIC ACID 1.2 mmol/L (0.4-2.0)
[2017-04-26 11:10] LABS: TROPONINI < 0.017 ng/mL (0.000-0.055)
[2017-04-26 11:10] LABS: BILIRUBIN,URINE MODERATE (NEG); CLARITY,URINE CLOUDY; COLOR,URINE AMBER; GLUCOSE,URINE NEGATIVE (NEG); NITRITE,URINE NEGATIVE (NEG); PARTIAL THROMBOPLASTIN TIME 56 SEC (24-38); PROTEIN,URINE >=300 mg/dL (NEG-TRACE)
[2017-04-26 11:12] LABS: NT-PRO BNP 7015 pg/mL (0-449)
[2017-04-26] MEDS ORDERED: levOFLOXacin PER PHARMACY. MC ×2 (11:15)
[2017-04-26 11:19] LABS: AMORPHOUS SEDIMENT,UR PRESENT /HPF; BACTERIA,URINE FEW /HPF (0-FEW); HYALINE CASTS, URINE MANY /HPF; RBC,URINE OCC /HPF (0-2)
[2017-04-26 11:33] LABS: BASO # 0.1 x10^3/uL (0.0-0.2); BASO % 1 % (0-3); EOS % 0 % (0-3); HEMOGLOBIN 13.3 g/dL (12.0-15.5); LYMPH # 1.3 x10^3/uL (1.0-4.8); LYMPH % 7 % (24-48); MEAN CORPUSCULAR HEMOGLOBIN 25 pg (25-35); MEAN CORPUSCULAR HGB CONC 31 g/dL (31-37); MEAN CORPUSCULAR VOLUME 80 fL (79-100); MONO % 21 % (0-9); NEUT # 13.9 x10^3uL (1.8-7.7); NEUT % 72 % (31-73); PLATELET COUNT 248 x10^3/uL (140-400); RED CELL DISTRIBUTION WIDTH 18.4 % (11.5-14.5); WHITE BLOOD COUNT 19.4 x10^3/uL (4.0-11.0)
[2017-04-26 11:34] LABS: HEMATOCRIT 42.2 % (36.0-47.0)
[2017-04-26] MEDS: AZTREONAM IV Push 2 GM VIAL. IVP ×2 (11:40)
[2017-04-26] MEDS ORDERED: fentaNYL PF VIAL 100 MCG/2 ML VIAL IV ×2 (11:45)
[2017-04-26] MEDS ORDERED: ACETAMINOPHEN 325 MG TABLET. PO ×2 (11:45)
[2017-04-26] MEDS ORDERED: ONDANSETRON PF 4 MG/2 ML VIAL. IV ×2 (11:45)
[2017-04-26] MEDS: VANCOMYCIN 1.5 GM in IV DEXTROSE 5% 500 ML IV (11:47)
[2017-04-26] MEDS ORDERED: AZTREONAM 2 GM in IV DEXTROSE 5% 100 ML IV (12:00)
[2017-04-26] MEDS: IPRATRPIUM/ALBUTEROL 0.5/2.5MG 3 ML NEBU. NEB ×6 (12:18→19:25)
[2017-04-26] MEDS: VANCOMYCIN PER PHARMACY MC ×2 (16:09)
[2017-04-26] MEDS ORDERED: ALBUTEROL SULFATE 2.5 MG/3 ML NEBU. NEB ×2 (17:15)
[2017-04-26 17:29] LABS: POC GLUCOSE 117 mg/dL (70-99)
[2017-04-26] MEDS: CARVEDILOL 6.25 MG TABLET. PO ×2 (18:03)
[2017-04-26] MEDS: FOLIC/VIT B COMP W-C (RENAL) TABLET. PO ×2 (20:55)
[2017-04-26] MEDS: CETIRIZINE HCL 10 MG TABLET. PO ×2 (20:55)
[2017-04-26] MEDS: TACROLIMUS 1 MG CAPSULE PO ×2 (20:55)
[2017-04-26] MEDS: LACTOBACILLUS RHAMNOSUS GG 1 CAPSULE. PO ×2 (20:55)
[2017-04-26] MEDS: AZTREONAM 0.5 GM in IV NORMAL SALINE 50ML 50 ML IV (20:56)
[2017-04-26] MEDS: TIMOLOL 0.25% OPHTH SOLUTION 5ML BOTTLE. OD ×2 (20:56)
[2017-04-26] MEDS ORDERED: AZTREONAM IV Push 1 GM VIAL. IVP ×2 (21:00)
[2017-04-27 04:55] LABS: ADD MAN DIFF? NO
[2017-04-27 05:38] LABS: ALBUMIN 2.7 g/dL (3.4-5.0); ALBUMIN/GLOBULIN RATIO 0.6 (1.0-1.7); ALK PHOS 114 U/L (46-116); ALT (SGPT) 16 U/L (14-59); ANION GAP 15 (6-14); AST (SGOT) 24 U/L (15-37); BLOOD UREA NITROGEN 58 mg/dL (7-20); BUN/CREATININE RATIO 16 (6-20); CALCIUM 8.7 mg/dL (8.5-10.1); CARBON DIOXIDE 23 mmol/L (21-32); CHLORIDE 92 mmol/L (98-107); CREATININE 3.7 mg/dL (0.6-1.0); GFR 14.3; GLUCOSE 55 mg/dL (70-99); POTASSIUM 4.6 mmol/L (3.5-5.1); SODIUM 130 mmol/L (136-145); TOTAL BILIRUBIN 0.6 mg/dL (0.2-1.0); TOTAL PROTEIN 6.9 g/dL (6.4-8.2)
[2017-04-27] MEDS: LEVOTHYROXINE 125 MCG TABLET PO ×2 (06:05)
[2017-04-27] MEDS: ACETAMINOPHEN 500 MG TABLET PO ×4 (06:09→17:56)
[2017-04-27 06:31] LABS: BASO # 0.1 x10^3/uL (0.0-0.2); BASO % 0 % (0-3); EOS % 0 % (0-3); HEMATOCRIT 40.6 % (36.0-47.0); HEMOGLOBIN 12.4 g/dL (12.0-15.5); LYMPH # 1.4 x10^3/uL (1.0-4.8); LYMPH % 6 % (24-48); MEAN CORPUSCULAR HEMOGLOBIN 25 pg (25-35); MEAN CORPUSCULAR HGB CONC 31 g/dL (31-37); MEAN CORPUSCULAR VOLUME 81 fL (79-100); MONO # 3.8 x10^3/uL (0.0-1.1); MONO % 17 % (0-9); NEUT # 17.7 x10^3uL (1.8-7.7); NEUT % 77 % (31-73); PLATELET COUNT 169 x10^3/uL (140-400); RED BLOOD COUNT 5.02 x10^6/uL (3.50-5.40); RED CELL DISTRIBUTION WIDTH 18.6 % (11.5-14.5); WHITE BLOOD COUNT 23.1 x10^3/uL (4.0-11.0)
[2017-04-27] MEDS: INSULIN ASPART 300 UNITS/3 ML INSULN.PEN SQ ×2 (07:30)
[2017-04-27] MEDS ORDERED: IV NORMAL SALINE 1000ML BAG 1,000 ML IV ×4 (07:33)
[2017-04-27] MEDS: IPRATRPIUM/ALBUTEROL 0.5/2.5MG 3 ML NEBU. NEB ×8 (07:39→19:18)
[2017-04-27] MEDS ORDERED: ACETAMINOPHEN 500 MG TABLET PO ×2 (07:45)
[2017-04-27] MEDS ORDERED: DIALYSIS PATIENT. MC ×2 (07:45)
[2017-04-27] MEDS ORDERED: diphenhydrAMINE 50 MG/ML VIAL IV ×4 (07:45)
[2017-04-27 08:23] LABS: POC GLUCOSE 69 mg/dL (70-99)
[2017-04-27] MEDS ORDERED: ONDANSETRON PF 4 MG/2 ML VIAL. IV ×2 (08:45)
[2017-04-27] MEDS ORDERED: FOLIC/VIT B COMP W-C (RENAL) TABLET. PO ×2 (09:00)
[2017-04-27] MEDS ORDERED: POLYETHYLENE GLYCOL 3350 17 GM PACKET. PO ×2 (09:00)
[2017-04-27] MEDS ORDERED: LISINOPRIL 10 MG TABLET PO ×2 (09:00)
[2017-04-27] MEDS: LISINOPRIL 10 MG TABLET PO ×2 (09:00)
[2017-04-27] MEDS: PANTOPRAZOLE 40 MG TABLET.DR. PO ×2 (09:34)
[2017-04-27] MEDS: LACTOBACILLUS RHAMNOSUS GG 1 CAPSULE. PO ×4 (09:34→20:43)
[2017-04-27] MEDS: TACROLIMUS 1 MG CAPSULE PO ×4 (09:35→20:43)
[2017-04-27] MEDS: AZTREONAM 0.5 GM in IV NORMAL SALINE 50ML 50 ML IV (09:35)
[2017-04-27] MEDS: TIMOLOL 0.25% OPHTH SOLUTION 5ML BOTTLE. OD ×4 (09:35→20:43)
[2017-04-27] MEDS: predniSONE 5 MG TABLET PO ×2 (09:35)
[2017-04-27 11:43] LABS: POC GLUCOSE 66 mg/dL (70-99)
[2017-04-27] MEDS: MEROPENEM 500 MG in IV NORMAL SALINE 50ML 50 ML IV (13:46)
[2017-04-27 14:18] LABS: POC GLUCOSE 116 mg/dL (70-99)
[2017-04-27] MEDS: CARVEDILOL 6.25 MG TABLET. PO ×2 (16:07)
[2017-04-27 18:17] LABS: C DIFF BY PCR Negative (Negative)
[2017-04-27 18:17] LABS: MRSA BY PCR Negative (Negative)
[2017-04-27] MEDS: LOPERAMIDE 2 MG CAPSULE PO ×2 (18:59)
[2017-04-27] MEDS: FOLIC/VIT B COMP W-C (RENAL) TABLET. PO ×2 (20:43)
[2017-04-27] MEDS: CETIRIZINE HCL 10 MG TABLET. PO ×2 (20:43)
[2017-04-27 20:50] LABS: POC GLUCOSE 173 mg/dL (70-99)
[2017-04-28] MEDS: ACETAMINOPHEN 500 MG TABLET PO ×6 (00:49→21:29)
[2017-04-28] MEDS: VANCOMYCIN RANDOM LEVEL. MC ×2 (05:00)
[2017-04-28 05:16] LABS: ADD MAN DIFF? NO
[2017-04-28 05:24] LABS: BASO # 0.1 x10^3/uL (0.0-0.2); BASO % 1 % (0-3); EOS % 0 % (0-3); HEMATOCRIT 37.6 % (36.0-47.0); HEMOGLOBIN 11.6 g/dL (12.0-15.5); LYMPH % 7 % (24-48); MEAN CORPUSCULAR HEMOGLOBIN 25 pg (25-35); MEAN CORPUSCULAR HGB CONC 31 g/dL (31-37); MEAN CORPUSCULAR VOLUME 80 fL (79-100); MONO # 1.2 x10^3/uL (0.0-1.1); MONO % 9 % (0-9); NEUT % 83 % (31-73); PLATELET COUNT 192 x10^3/uL (140-400); RED CELL DISTRIBUTION WIDTH 18.4 % (11.5-14.5); WHITE BLOOD COUNT 14.3 x10^3/uL (4.0-11.0)
[2017-04-28 06:03] LABS: MAGNESIUM 2.1 mg/dL (1.8-2.4)
[2017-04-28] MEDS: PANTOPRAZOLE 40 MG TABLET.DR. PO ×2 (06:06)
[2017-04-28] MEDS: LEVOTHYROXINE 125 MCG TABLET PO ×2 (06:06)
[2017-04-28 06:07] LABS: ALBUMIN 2.6 g/dL (3.4-5.0); ALBUMIN/GLOBULIN RATIO 0.6 (1.0-1.7); ALK PHOS 114 U/L (46-116); ALT (SGPT) 13 U/L (14-59); ANION GAP 12 (6-14); AST (SGOT) 23 U/L (15-37); BLOOD UREA NITROGEN 31 mg/dL (7-20); BUN/CREATININE RATIO 11 (6-20); CALCIUM 8.7 mg/dL (8.5-10.1); CARBON DIOXIDE 27 mmol/L (21-32); CHLORIDE 96 mmol/L (98-107); CREATININE 2.7 mg/dL (0.6-1.0); GFR 20.5; GLUCOSE 75 mg/dL (70-99); POTASSIUM 3.9 mmol/L (3.5-5.1); SODIUM 135 mmol/L (136-145); TOTAL BILIRUBIN 0.5 mg/dL (0.2-1.0); TOTAL PROTEIN 6.7 g/dL (6.4-8.2)
[2017-04-28] MEDS: VANCOMYCIN 1.5 GM in IV DEXTROSE 5 %-0.2 % NACL 500 ML IV (06:24)
[2017-04-28] MEDS: VANCOMYCIN PER PHARMACY MC ×2 (06:28)
[2017-04-28] MEDS: IPRATRPIUM/ALBUTEROL 0.5/2.5MG 3 ML NEBU. NEB ×8 (07:33→19:27)
[2017-04-28 07:54] LABS: POC GLUCOSE 92 mg/dL (70-99)
[2017-04-28] MEDS: LOPERAMIDE 2 MG CAPSULE PO ×2 (07:54)
[2017-04-28] MEDS: TIMOLOL 0.25% OPHTH SOLUTION 5ML BOTTLE. OD ×4 (09:14→21:28)
[2017-04-28] MEDS: LISINOPRIL 10 MG TABLET PO ×2 (09:14)
[2017-04-28] MEDS: predniSONE 5 MG TABLET PO ×2 (09:14)
[2017-04-28] MEDS: TACROLIMUS 1 MG CAPSULE PO ×4 (09:14→21:29)
[2017-04-28] MEDS: MEROPENEM 500 MG in IV NORMAL SALINE 50ML 50 ML IV (11:15)
[2017-04-28 11:50] LABS: POC GLUCOSE 144 mg/dL (70-99)
[2017-04-28] MEDS ORDERED: VANCOMYCIN RANDOM LEVEL. MC ×2 (12:00)
[2017-04-28] MEDS ORDERED: LISINOPRIL 10 MG TABLET PO ×2 (16:00)
[2017-04-28 16:15] LABS: POC GLUCOSE 178 mg/dL (70-99)
[2017-04-28] MEDS: CARVEDILOL 6.25 MG TABLET. PO ×2 (16:44)
[2017-04-28] MEDS ORDERED: DEXTROSE 50% 25 GM / 50ML DISP.SYRIN. IV ×2 (18:45)
[2017-04-28] MEDS: INSULIN ASPART 300 UNITS/3 ML INSULN.PEN SQ ×2 (19:00)
[2017-04-28 21:27] LABS: POC GLUCOSE 185 mg/dL (70-99)
[2017-04-28] MEDS: FOLIC/VIT B COMP W-C (RENAL) TABLET. PO ×2 (21:29)
[2017-04-28] MEDS: CETIRIZINE HCL 10 MG TABLET. PO ×2 (21:29)
[2017-04-29 05:10] LABS: ADD MAN DIFF? NO
[2017-04-29 05:25] LABS: BASO % 1 % (0-3); EOS % 0 % (0-3); HEMATOCRIT 35.2 % (36.0-47.0); HEMOGLOBIN 11.1 g/dL (12.0-15.5); LYMPH # 1.1 x10^3/uL (1.0-4.8); LYMPH % 13 % (24-48); MEAN CORPUSCULAR HEMOGLOBIN 25 pg (25-35); MEAN CORPUSCULAR HGB CONC 32 g/dL (31-37); MEAN CORPUSCULAR VOLUME 80 fL (79-100); MONO # 0.9 x10^3/uL (0.0-1.1); MONO % 11 % (0-9); NEUT % 75 % (31-73); PLATELET COUNT 204 x10^3/uL (140-400); RED BLOOD COUNT 4.42 x10^6/uL (3.50-5.40); RED CELL DISTRIBUTION WIDTH 17.9 % (11.5-14.5)
[2017-04-29 05:44] LABS: ALBUMIN 2.5 g/dL (3.4-5.0); ALBUMIN/GLOBULIN RATIO 0.6 (1.0-1.7); ALK PHOS 101 U/L (46-116); ALT (SGPT) 11 U/L (14-59); ANION GAP 11 (6-14); AST (SGOT) 23 U/L (15-37); BLOOD UREA NITROGEN 43 mg/dL (7-20); BUN/CREATININE RATIO 13 (6-20); CALCIUM 8.5 mg/dL (8.5-10.1); CARBON DIOXIDE 27 mmol/L (21-32); CHLORIDE 93 mmol/L (98-107); CREATININE 3.4 mg/dL (0.6-1.0); GFR 15.7; GLUCOSE 91 mg/dL (70-99); POTASSIUM 4.2 mmol/L (3.5-5.1); SODIUM 131 mmol/L (136-145); TOTAL BILIRUBIN 0.5 mg/dL (0.2-1.0); TOTAL PROTEIN 6.9 g/dL (6.4-8.2)
[2017-04-29] MEDS: LEVOTHYROXINE 125 MCG TABLET PO ×2 (06:13)
[2017-04-29] MEDS: ACETAMINOPHEN 500 MG TABLET PO ×6 (06:16→20:15)
[2017-04-29 07:00] LABS: POC GLUCOSE 76 mg/dL (70-99)
[2017-04-29] MEDS: PANTOPRAZOLE 40 MG TABLET.DR. PO ×2 (07:20)
[2017-04-29] MEDS: INSULIN ASPART 300 UNITS/3 ML INSULN.PEN SQ ×6 (07:22→16:22)
[2017-04-29] MEDS: TACROLIMUS 1 MG CAPSULE PO ×4 (08:27→20:12)
[2017-04-29] MEDS: MEROPENEM 500 MG in IV NORMAL SALINE 50ML 50 ML IV (08:27)
[2017-04-29] MEDS: TIMOLOL 0.25% OPHTH SOLUTION 5ML BOTTLE. OD ×4 (08:27→20:12)
[2017-04-29] MEDS: LISINOPRIL 10 MG TABLET PO ×2 (08:27)
[2017-04-29] MEDS: IPRATRPIUM/ALBUTEROL 0.5/2.5MG 3 ML NEBU. NEB ×8 (08:49→19:23)
[2017-04-29 11:20] LABS: POC GLUCOSE 112 mg/dL (70-99)
[2017-04-29 16:23] LABS: POC GLUCOSE 87 mg/dL (70-99)
[2017-04-29] MEDS: CARVEDILOL 6.25 MG TABLET. PO ×2 (17:00)
[2017-04-29] MEDS: CETIRIZINE HCL 10 MG TABLET. PO ×2 (20:12)
[2017-04-29] MEDS: FOLIC/VIT B COMP W-C (RENAL) TABLET. PO ×2 (20:12)
[2017-04-29 20:19] LABS: POC GLUCOSE 117 mg/dL (70-99)
[2017-04-30] MEDS: ACETAMINOPHEN 500 MG TABLET PO ×4 (04:23→13:19)
[2017-04-30 04:55] LABS: ADD MAN DIFF? NO
[2017-04-30 05:04] LABS: BASO # 0.1 x10^3/uL (0.0-0.2); BASO % 1 % (0-3); EOS % 0 % (0-3); HEMATOCRIT 36.7 % (36.0-47.0); HEMOGLOBIN 11.6 g/dL (12.0-15.5); LYMPH # 1.1 x10^3/uL (1.0-4.8); LYMPH % 17 % (24-48); MEAN CORPUSCULAR HEMOGLOBIN 25 pg (25-35); MEAN CORPUSCULAR HGB CONC 32 g/dL (31-37); MEAN CORPUSCULAR VOLUME 80 fL (79-100); MONO # 0.6 x10^3/uL (0.0-1.1); MONO % 9 % (0-9); NEUT # 4.6 x10^3uL (1.8-7.7); NEUT % 73 % (31-73); PLATELET COUNT 211 x10^3/uL (140-400); RED BLOOD COUNT 4.58 x10^6/uL (3.50-5.40); RED CELL DISTRIBUTION WIDTH 17.8 % (11.5-14.5); WHITE BLOOD COUNT 6.4 x10^3/uL (4.0-11.0)
[2017-04-30 05:37] LABS: ALBUMIN 2.5 g/dL (3.4-5.0); ALBUMIN/GLOBULIN RATIO 0.6 (1.0-1.7); ALK PHOS 103 U/L (46-116); ALT (SGPT) 11 U/L (14-59); ANION GAP 13 (6-14); AST (SGOT) 22 U/L (15-37); BLOOD UREA NITROGEN 52 mg/dL (7-20); BUN/CREATININE RATIO 12 (6-20); CALCIUM 8.6 mg/dL (8.5-10.1); CARBON DIOXIDE 25 mmol/L (21-32); CHLORIDE 93 mmol/L (98-107); CREATININE 4.2 mg/dL (0.6-1.0); GFR 12.3; GLUCOSE 74 mg/dL (70-99); PHOSPHORUS 5.4 mg/dL (2.6-4.7); POTASSIUM 4.2 mmol/L (3.5-5.1); SODIUM 131 mmol/L (136-145); TOTAL BILIRUBIN 0.5 mg/dL (0.2-1.0)
[2017-04-30] MEDS: LEVOTHYROXINE 125 MCG TABLET PO ×2 (05:37)
[2017-04-30] MEDS ORDERED: VANCOMYCIN RANDOM LEVEL. MC ×2 (06:00)
[2017-04-30] MEDS: PANTOPRAZOLE 40 MG TABLET.DR. PO ×2 (07:30)
[2017-04-30] MEDS: INSULIN ASPART 300 UNITS/3 ML INSULN.PEN SQ ×4 (08:00→11:37)
[2017-04-30] MEDS ORDERED: IV NORMAL SALINE 1000ML BAG 1,000 ML IV ×4 (08:06)
[2017-04-30 08:08] LABS: POC GLUCOSE 67 mg/dL (70-99)
[2017-04-30 08:15] LABS: POC GLUCOSE 88 mg/dL (70-99)
[2017-04-30] MEDS ORDERED: DIALYSIS PATIENT. MC ×4 (08:15)
[2017-04-30] MEDS: IPRATRPIUM/ALBUTEROL 0.5/2.5MG 3 ML NEBU. NEB ×2 (08:48)
[2017-04-30] MEDS: TIMOLOL 0.25% OPHTH SOLUTION 5ML BOTTLE. OD ×2 (09:00)
[2017-04-30] MEDS: TACROLIMUS 1 MG CAPSULE PO ×2 (13:17)
[2017-04-30] MEDS: predniSONE 5 MG TABLET PO ×2 (13:17)
[2017-04-30] MEDS: LISINOPRIL 10 MG TABLET PO ×2 (13:18)
[2017-04-30] MEDS: MEROPENEM 500 MG in IV NORMAL SALINE 50ML 50 ML IV (13:18)
== END 2017-04-30 16:26 | DRG 871 ==
LOC: ER 10:27 → ED HOLD 11:12 → 5 NORTH 15:32
PROC: 5A1D70Z Performance of Urinary Filtration, Intermittent, Less than 6 Hours Per Day (ICD-10-PCS; principal; 2017-04-27)
PROC: 5A1D70Z Performance of Urinary Filtration, Intermittent, Less than 6 Hours Per Day (ICD-10-PCS; 2017-04-30)
DX: A41.89 Other specified sepsis (principal); J96.21 Acute and chronic respiratory failure with hypoxia; E43 Unspecified severe protein-calorie malnutrition; I13.2 Hypertensive heart and chronic kidney disease with heart failure and with stage 5 chronic kidney disease, or end stage renal disease; J15.6 Pneumonia due to other Gram-negative bacteria; E11.22 Type 2 diabetes mellitus with diabetic chronic kidney disease; E11.649 Type 2 diabetes mellitus with hypoglycemia without coma; T86.12 Kidney transplant failure; N18.6 End stage renal disease; I50.30 Unspecified diastolic (congestive) heart failure; E87.1 Hypo-osmolality and hyponatremia; D63.1 Anemia in chronic kidney disease; Y95 Nosocomial condition; E03.9 Hypothyroidism, unspecified; E55.9 Vitamin D deficiency, unspecified; E66.9 Obesity, unspecified; E78.00 Pure hypercholesterolemia, unspecified; E78.5 Hyperlipidemia, unspecified; H40.9 Unspecified glaucoma; H91.90 Unspecified hearing loss, unspecified ear; K21.9 Gastro-esophageal reflux disease without esophagitis; M19.90 Unspecified osteoarthritis, unspecified site; M53.3 Sacrococcygeal disorders, not elsewhere classified; Z87.01 Personal history of pneumonia (recurrent); Z88.0 Allergy status to penicillin; Z90.49 Acquired absence of other specified parts of digestive tract; Z90.710 Acquired absence of both cervix and uterus; Z99.2 Dependence on renal dialysis; Z88.8 Allergy status to other drugs, medicaments and biological substances; Z88.1 Allergy status to other antibiotic agents; Z91.041 Radiographic dye allergy status; Z68.21 Body mass index [BMI] 21.0-21.9, adult
CPT/HCPCS: 36415; 51702; 71045; 71250; 80053; 80202; 81001; 82962; 83605; 83735; 83880; 84100; 84484; 85025; 85610; 85730; 87040; 87086; 87324; 87641; 87804; 87804-59; 93005; 94640; 94760; 96365; 96368; 96375; 97162-GP; 99285-25; J1815; J1956; J2185; J3370; J3490; J7040; J7507; J7512; J7620

== ENCOUNTER 2017-06-02 21:37 | Emergency (ER) | payer MEDICARE ==
[2017-06-02 21:51] LABS: ADD MAN DIFF? NO
[2017-06-02 21:54] LABS: BASO % 1 % (0-3); EOS % 0 % (0-3); HEMATOCRIT 35.8 % (36.0-47.0); HEMOGLOBIN 11.6 g/dL (12.0-15.5); LYMPH # 0.9 x10^3/uL (1.0-4.8); LYMPH % 26 % (24-48); MEAN CORPUSCULAR HEMOGLOBIN 25 pg (25-35); MEAN CORPUSCULAR HGB CONC 32 g/dL (31-37); MEAN CORPUSCULAR VOLUME 78 fL (79-100); MONO # 0.4 x10^3/uL (0.0-1.1); MONO % 13 % (0-9); NEUT % 60 % (31-73); PLATELET COUNT 221 x10^3/uL (140-400); RED CELL DISTRIBUTION WIDTH 17.2 % (11.5-14.5); WHITE BLOOD COUNT 3.4 x10^3/uL (4.0-11.0)
[2017-06-02 22:01] LABS: ANION GAP 10 (6-14); BLOOD UREA NITROGEN 91 mg/dL (7-20); CALCIUM 9.3 mg/dL (8.5-10.1); CARBON DIOXIDE 27 mmol/L (21-32); CHLORIDE 93 mmol/L (98-107); CREATININE 4.2 mg/dL (0.6-1.0); GFR 12.3; GLUCOSE 148 mg/dL (70-99); POTASSIUM 3.8 mmol/L (3.5-5.1); SODIUM 130 mmol/L (136-145)
[2017-06-02 22:10] LABS: BILIRUBIN,URINE NEGATIVE (NEG); CLARITY,URINE CLEAR; COLOR,URINE YELLOW; GLUCOSE,URINE NEGATIVE (NEG); NITRITE,URINE NEGATIVE (NEG); PH,URINE 5.5; PROTEIN,URINE >=300 mg/dL (NEG-TRACE); UROBILINOGEN,URINE 0.2 mg/dL (0.2 mg/dL)
[2017-06-02 22:15] LABS: BACTERIA,URINE FEW /HPF (0-FEW); RBC,URINE 0 /HPF (0-2)
[2017-06-02 22:21] LABS: TROPONINI 0.017 ng/mL (0.000-0.055)
[2017-06-02 22:29] LABS: LACTIC ACID 1.4 mmol/L (0.4-2.0)
[2017-06-02 22:30] LABS: CREATINE KINASE 28 U/L (26-192)
[2017-06-02 22:31] LABS: CKMB MASS < 0.5 ng/mL (0.0-3.6)
== END 2017-06-03 00:15 | disposition home or self-care (01) ==
LOC: ER 06-03 00:15
DX: R53.83 Other fatigue (principal); I13.2 Hypertensive heart and chronic kidney disease with heart failure and with stage 5 chronic kidney disease, or end stage renal disease; E11.22 Type 2 diabetes mellitus with diabetic chronic kidney disease; N18.6 End stage renal disease; I50.9 Heart failure, unspecified; K21.9 Gastro-esophageal reflux disease without esophagitis; R05 Cough; Z99.2 Dependence on renal dialysis; Z94.0 Kidney transplant status; E78.00 Pure hypercholesterolemia, unspecified; E03.9 Hypothyroidism, unspecified; Z88.1 Allergy status to other antibiotic agents; Z88.8 Allergy status to other drugs, medicaments and biological substances; Z91.041 Radiographic dye allergy status
CPT/HCPCS: 36415; 51701; 70450; 71045; 80048; 81001; 82553; 83605; 84484; 85025; 87040; 87086; 93005; 99285-25

== ENCOUNTER → 2017-06-09 | Outpatient (CLI) | payer MEDICARE ==
[2017-06-10 20:09] LABS: C DIFF BY PCR Negative (Negative)
== END | disposition home or self-care (01) ==
LOC: SPEC 14:50
DX: A04.72 Enterocolitis due to Clostridium difficile, not specified as recurrent (principal)
CPT/HCPCS: 36415; 87324

== ENCOUNTER 2017-09-01 18:11 | Inpatient (IN) | payer MEDICARE ==
[2017-09-01 18:56] LABS: BASO # 0.1 x10^3/uL (0.0-0.2); BASO % 1 % (0-3); EOS % 0 % (0-3); HEMATOCRIT 41.1 % (36.0-47.0); LYMPH % 8 % (24-48); MEAN CORPUSCULAR HEMOGLOBIN 26 pg (25-35); MEAN CORPUSCULAR HGB CONC 32 g/dL (31-37); MEAN CORPUSCULAR VOLUME 82 fL (79-100); MONO # 2.2 x10^3/uL (0.0-1.1); MONO % 18 % (0-9); NEUT # 8.6 x10^3uL (1.8-7.7); NEUT % 73 % (31-73); PLATELET COUNT 165 x10^3/uL (140-400); RED BLOOD COUNT 5.01 x10^6/uL (3.50-5.40); RED CELL DISTRIBUTION WIDTH 18.2 % (11.5-14.5); WHITE BLOOD COUNT 11.9 x10^3/uL (4.0-11.0)
[2017-09-01 18:59] LABS: ADD MAN DIFF? YES
[2017-09-01 19:03] LABS: ANION GAP 13 (6-14); BLOOD UREA NITROGEN 53 mg/dL (7-20); BUN/CREATININE RATIO 12 (6-20); CALCIUM 8.7 mg/dL (8.5-10.1); CARBON DIOXIDE 26 mmol/L (21-32); CHLORIDE 96 mmol/L (98-107); CREATININE 4.3 mg/dL (0.6-1.0); GLUCOSE 90 mg/dL (70-99); POTASSIUM 4.2 mmol/L (3.5-5.1); SODIUM 135 mmol/L (136-145)
[2017-09-01 19:09] LABS: ALBUMIN 2.8 g/dL (3.4-5.0); ALBUMIN/GLOBULIN RATIO 0.7 (1.0-1.7); ALK PHOS 87 U/L (46-116); ALT (SGPT) 10 U/L (14-59); AST (SGOT) 27 U/L (15-37); TOTAL BILIRUBIN 0.6 mg/dL (0.2-1.0); TOTAL PROTEIN 6.8 g/dL (6.4-8.2)
[2017-09-01 19:11] LABS: TROPONINI 0.047 ng/mL (0.000-0.055)
[2017-09-01 19:15] LABS: % BANDS 8 % (0-9); % BASOS 1 % (0-3); % LYMPHS 9 % (24-48); % MONOS 19 % (0-10); % SEGS 63 % (35-66)
[2017-09-01 19:15] LABS: LACTIC ACID 2.2 mmol/L (0.4-2.0)
[2017-09-01 19:20] LABS: ANISOCYTOSIS SLIGHT; PLT ESTIMATE ADEQUATE (ADEQUATE)
[2017-09-01 19:35] LABS: PROCALCITONIN 4.55 ng/mL (0.00-0.10)
[2017-09-01 19:39] LABS: BILIRUBIN,URINE SMALL (NEG); CLARITY,URINE CLOUDY; COLOR,URINE YELLOW; GLUCOSE,URINE NEGATIVE (NEG); NITRITE,URINE NEGATIVE (NEG); PROTEIN,URINE >=300 mg/dL (NEG-TRACE)
[2017-09-01] MEDS: IV NORMAL SALINE 500ML BAG 500 ML IV (19:45)
[2017-09-01] MEDS: VANCOMYCIN PER PHARMACY MC (19:47)
[2017-09-01 20:02] LABS: BACTERIA,URINE FEW /HPF (0-FEW); RBC,URINE OCC /HPF (0-2); SQUAMOUS EPITHELIAL CELL,UR FEW /LPF; WBC,URINE >40 /HPF (0-4)
[2017-09-01] MEDS: CEFEPIME HCL IV Push 1 GM VIAL. IVP (20:03)
[2017-09-01] MEDS: VANCOMYCIN 1.5 GM in IV 1/2 NORMAL SALINE 500 ML IV (20:04)
[2017-09-01] MEDS ORDERED: CEFEPIME HCL 1 GM in IV DEXTROSE 5% 50 ML IV ×2 (21:30→22:00)
[2017-09-01] MEDS: IV NORMAL SALINE 1000ML BAG 1,000 ML IV (22:04)
[2017-09-01] MEDS: hydrALAZINE 20 MG/ML VIAL. IVP (22:05)
[2017-09-01] MEDS: IV NORMAL SALINE 250ML 250 ML IV (22:05)
[2017-09-01] MEDS: ACETAMINOPHEN 325 MG TABLET. PO (22:06)
[2017-09-01] MEDS: DEXTROSE 50% 25 GM / 50ML DISP.SYRIN. IV (22:30)
[2017-09-01 22:46] LABS: POC GLUCOSE 71 mg/dL (70-99)
[2017-09-01 22:56] LABS: POC GLUCOSE 173 mg/dL (70-99)
[2017-09-02 00:46] LABS: LACTIC ACID 2.3 mmol/L (0.4-2.0)
[2017-09-02 07:20] LABS: ADD MAN DIFF? NO
[2017-09-02 07:22] LABS: BASO % 0 % (0-3); EOS % 0 % (0-3); HEMATOCRIT 38.8 % (36.0-47.0); HEMOGLOBIN 12.4 g/dL (12.0-15.5); LYMPH # 1.2 x10^3/uL (1.0-4.8); LYMPH % 6 % (24-48); MEAN CORPUSCULAR HEMOGLOBIN 26 pg (25-35); MEAN CORPUSCULAR HGB CONC 32 g/dL (31-37); MEAN CORPUSCULAR VOLUME 81 fL (79-100); MONO # 4.4 x10^3/uL (0.0-1.1); MONO % 23 % (0-9); NEUT # 13.3 x10^3uL (1.8-7.7); NEUT % 70 % (31-73); PLATELET COUNT 174 x10^3/uL (140-400); RED CELL DISTRIBUTION WIDTH 17.5 % (11.5-14.5)
[2017-09-02 07:35] LABS: ANION GAP 14 (6-14); BLOOD UREA NITROGEN 58 mg/dL (7-20); CALCIUM 8.6 mg/dL (8.5-10.1); CARBON DIOXIDE 24 mmol/L (21-32); CHLORIDE 95 mmol/L (98-107); CREATININE 4.6 mg/dL (0.6-1.0); GFR 11.1; GLUCOSE 76 mg/dL (70-99); SODIUM 133 mmol/L (136-145)
[2017-09-02 07:45] LABS: LACTIC ACID 1.2 mmol/L (0.4-2.0)
[2017-09-02 08:07] LABS: POC GLUCOSE 72 mg/dL (70-99)
[2017-09-02] MEDS: MEROPENEM 500 MG in IV NORMAL SALINE 50ML 50 ML IV (11:29)
[2017-09-02 11:30] LABS: POC GLUCOSE 70 mg/dL (70-99)
[2017-09-02] MEDS: ACETAMINOPHEN 325 MG SUPP.RECT. PR (11:30)
[2017-09-02] MEDS: DEXTROSE 50% 25 GM / 50ML DISP.SYRIN. IV (11:30)
[2017-09-02 12:13] LABS: POC GLUCOSE 108 mg/dL (70-99)
[2017-09-02] MEDS: VANCOMYCIN PER PHARMACY MC (12:35)
[2017-09-02] MEDS: HEPARIN PF for SUB-Q USE 5,000 UNIT/0.5 ML VIAL. SQ ×2 (15:23→20:56)
[2017-09-02 16:55] LABS: POC GLUCOSE 73 mg/dL (70-99)
[2017-09-02] MEDS: AMINO AC 3%/ELECTROLYTE/GLYCER 1,000 ML IV (17:04)
[2017-09-02 19:09] LABS: MRSA BY PCR Positive (Negative)
[2017-09-02] MEDS ORDERED: CEFEPIME HCL IV Push 1 GM VIAL. IVP (20:00)
[2017-09-02 20:32] LABS: POC GLUCOSE 80 mg/dL (70-99)
[2017-09-03] MEDS: VANCOMYCIN RANDOM LEVEL. MC (05:00)
[2017-09-03 07:31] LABS: ADD MAN DIFF? NO
[2017-09-03 07:34] LABS: BASO # 0.1 x10^3/uL (0.0-0.2); BASO % 1 % (0-3); EOS % 0 % (0-3); HEMATOCRIT 38.4 % (36.0-47.0); HEMOGLOBIN 12.3 g/dL (12.0-15.5); LYMPH # 0.9 x10^3/uL (1.0-4.8); LYMPH % 4 % (24-48); MEAN CORPUSCULAR HEMOGLOBIN 26 pg (25-35); MEAN CORPUSCULAR HGB CONC 32 g/dL (31-37); MEAN CORPUSCULAR VOLUME 81 fL (79-100); MONO # 4.2 x10^3/uL (0.0-1.1); MONO % 19 % (0-9); NEUT # 17.2 x10^3uL (1.8-7.7); NEUT % 77 % (31-73); PLATELET COUNT 150 x10^3/uL (140-400); RED BLOOD COUNT 4.73 x10^6/uL (3.50-5.40); RED CELL DISTRIBUTION WIDTH 17.8 % (11.5-14.5); WHITE BLOOD COUNT 22.4 x10^3/uL (4.0-11.0)
[2017-09-03 07:58] LABS: ANION GAP 12 (6-14); BLOOD UREA NITROGEN 72 mg/dL (7-20); CALCIUM 8.4 mg/dL (8.5-10.1); CARBON DIOXIDE 25 mmol/L (21-32); CHLORIDE 96 mmol/L (98-107); GFR 10.1; GLUCOSE 79 mg/dL (70-99); POTASSIUM 4.6 mmol/L (3.5-5.1); SODIUM 133 mmol/L (136-145)
[2017-09-03 08:11] LABS: POC GLUCOSE 73 mg/dL (70-99)
[2017-09-03] MEDS: VANCOMYCIN PER PHARMACY MC (08:51)
[2017-09-03] MEDS: HEPARIN PF for SUB-Q USE 5,000 UNIT/0.5 ML VIAL. SQ ×2 (09:00→21:43)
[2017-09-03] MEDS ORDERED: IV NORMAL SALINE 1000ML BAG 1,000 ML IV ×2 (09:14)
[2017-09-03] MEDS ORDERED: DIALYSIS PATIENT. MC (09:15)
[2017-09-03] MEDS: DOXYCYCLINE HYCLATE 100 MG TABLET PO (10:30)
[2017-09-03] MEDS: DEXTROSE 50% 25 GM / 50ML DISP.SYRIN. IV ×2 (17:13→21:56)
[2017-09-03] MEDS: VANCOMYCIN 500 MG in IV NORMAL SALINE 100ML 100 ML IV (17:17)
[2017-09-03 17:27] LABS: POC GLUCOSE 53 mg/dL (70-99)
[2017-09-03 17:32] LABS: POC GLUCOSE 114 mg/dL (70-99)
[2017-09-03] MEDS: MEROPENEM 500 MG in IV NORMAL SALINE 50ML 50 ML IV (18:49)
[2017-09-03 21:50] LABS: POC GLUCOSE 61 mg/dL (70-99)
[2017-09-03] MEDS: AMINO AC 3%/ELECTROLYTE/GLYCER 1,000 ML IV (22:02)
[2017-09-03] MEDS: ACETAMINOPHEN 325 MG SUPP.RECT. PR (22:18)
[2017-09-03 22:30] LABS: POC GLUCOSE 109 mg/dL (70-99)
[2017-09-04 07:58] LABS: POC GLUCOSE 75 mg/dL (70-99)
[2017-09-04] MEDS: AMINO AC 3%/ELECTROLYTE/GLYCER 1,000 ML IV ×2 (09:00→20:38)
[2017-09-04] MEDS ORDERED: MAGNESIUM SULFATE 2GM 50 ML IV (09:00)
[2017-09-04] MEDS: HEPARIN PF for SUB-Q USE 5,000 UNIT/0.5 ML VIAL. SQ ×2 (09:29→20:36)
[2017-09-04 10:15] LABS: ADD MAN DIFF? NO
[2017-09-04 10:21] LABS: BASO # 0.1 x10^3/uL (0.0-0.2); BASO % 0 % (0-3); EOS % 0 % (0-3); HEMATOCRIT 37.1 % (36.0-47.0); HEMOGLOBIN 11.5 g/dL (12.0-15.5); LYMPH # 1.1 x10^3/uL (1.0-4.8); LYMPH % 7 % (24-48); MEAN CORPUSCULAR HEMOGLOBIN 25 pg (25-35); MEAN CORPUSCULAR HGB CONC 31 g/dL (31-37); MEAN CORPUSCULAR VOLUME 82 fL (79-100); MONO # 3.2 x10^3/uL (0.0-1.1); MONO % 20 % (0-9); NEUT # 12.1 x10^3uL (1.8-7.7); NEUT % 73 % (31-73); PLATELET COUNT 140 x10^3/uL (140-400); RED BLOOD COUNT 4.55 x10^6/uL (3.50-5.40); RED CELL DISTRIBUTION WIDTH 18.2 % (11.5-14.5); WHITE BLOOD COUNT 16.6 x10^3/uL (4.0-11.0)
[2017-09-04 10:40] LABS: ANION GAP 6 (6-14); BLOOD UREA NITROGEN 38 mg/dL (7-20); CALCIUM 8.4 mg/dL (8.5-10.1); CARBON DIOXIDE 28 mmol/L (21-32); CHLORIDE 99 mmol/L (98-107); CREATININE 3.1 mg/dL (0.6-1.0); GFR 17.4; GLUCOSE 82 mg/dL (70-99); POTASSIUM 4.4 mmol/L (3.5-5.1); SODIUM 133 mmol/L (136-145)
[2017-09-04 11:51] LABS: POC GLUCOSE 88 mg/dL (70-99)
[2017-09-04] MEDS: MEROPENEM 500 MG in IV NORMAL SALINE 50ML 50 ML IV (12:20)
[2017-09-04] MEDS: HYDROcodone/APAP 5/325MG 1 TAB TABLET PO ×2 (12:22→20:23)
[2017-09-04] MEDS: VANCOMYCIN PER PHARMACY MC ×2 (12:41→12:45)
[2017-09-04 18:25] LABS: POC GLUCOSE 77 mg/dL (70-99)
[2017-09-04] MEDS: LIDOCAINE (700MG/PATCH) PATCH. TD (20:23)
[2017-09-04] MEDS: PATCH REMOVAL. MC (20:39)
[2017-09-04 21:51] LABS: POC GLUCOSE 108 mg/dL (70-99)
[2017-09-05] MEDS: HYDROcodone/APAP 5/325MG 1 TAB TABLET PO ×3 (05:19→21:11)
[2017-09-05 07:34] LABS: ADD MAN DIFF? NO
[2017-09-05 07:40] LABS: BASO # 0.1 x10^3/uL (0.0-0.2); BASO % 1 % (0-3); EOS % 0 % (0-3); HEMATOCRIT 36.5 % (36.0-47.0); HEMOGLOBIN 11.4 g/dL (12.0-15.5); LYMPH # 1.1 x10^3/uL (1.0-4.8); LYMPH % 7 % (24-48); MEAN CORPUSCULAR HEMOGLOBIN 26 pg (25-35); MEAN CORPUSCULAR HGB CONC 31 g/dL (31-37); MEAN CORPUSCULAR VOLUME 81 fL (79-100); MONO # 2.9 x10^3/uL (0.0-1.1); MONO % 17 % (0-9); NEUT # 12.5 x10^3uL (1.8-7.7); NEUT % 75 % (31-73); PLATELET COUNT 123 x10^3/uL (140-400); RED BLOOD COUNT 4.49 x10^6/uL (3.50-5.40); RED CELL DISTRIBUTION WIDTH 18.5 % (11.5-14.5); WHITE BLOOD COUNT 16.6 x10^3/uL (4.0-11.0)
[2017-09-05 08:01] LABS: ALBUMIN 1.6 g/dL (3.4-5.0); ANION GAP 6 (6-14); BLOOD UREA NITROGEN 46 mg/dL (7-20); CALCIUM 8.2 mg/dL (8.5-10.1); CARBON DIOXIDE 26 mmol/L (21-32); CHLORIDE 97 mmol/L (98-107); CREATININE 3.4 mg/dL (0.6-1.0); GFR 15.7; GLUCOSE 73 mg/dL (70-99); MAGNESIUM 2.2 mg/dL (1.8-2.4); PHOSPHORUS 4.5 mg/dL (2.6-4.7); SODIUM 129 mmol/L (136-145)
[2017-09-05 08:07] LABS: POTASSIUM 5.2 mmol/L (3.5-5.1)
[2017-09-05 08:43] LABS: POC GLUCOSE 81 mg/dL (70-99)
[2017-09-05] MEDS: METOPROLOL TART IMMED RELEASE 25 MG TABLET. PO ×2 (09:02→21:11)
[2017-09-05] MEDS: LIDOCAINE (700MG/PATCH) PATCH. TD (09:09)
[2017-09-05] MEDS: HEPARIN PF for SUB-Q USE 5,000 UNIT/0.5 ML VIAL. SQ ×2 (09:22→21:32)
[2017-09-05] MEDS: MEROPENEM 500 MG in IV NORMAL SALINE 50ML 50 ML IV (11:19)
[2017-09-05] MEDS ORDERED: IV NORMAL SALINE 1000ML BAG 1,000 ML IV ×2 (12:00)
[2017-09-05 12:22] LABS: POC GLUCOSE 87 mg/dL (70-99)
[2017-09-05] MEDS: VANCOMYCIN PER PHARMACY MC (12:52)
[2017-09-05] MEDS ORDERED: DIALYSIS PATIENT. MC ×2 (15:30)
[2017-09-05] MEDS: VANCOMYCIN 500 MG in IV NORMAL SALINE 100ML 100 ML IV (16:26)
[2017-09-05 17:19] LABS: POC GLUCOSE 61 mg/dL (70-99)
[2017-09-05 17:48] LABS: POC GLUCOSE 66 mg/dL (70-99)
[2017-09-05 18:37] LABS: POC GLUCOSE 91 mg/dL (70-99)
[2017-09-05 20:56] LABS: POC GLUCOSE 82 mg/dL (70-99)
[2017-09-05] MEDS: PATCH REMOVAL. MC (21:00)
[2017-09-05] MEDS: AMINO AC 3%/ELECTROLYTE/GLYCER 1,000 ML IV (23:57)
[2017-09-06 08:22] LABS: ADD MAN DIFF? NO
[2017-09-06 08:29] LABS: BASO # 0.1 x10^3/uL (0.0-0.2); BASO % 1 % (0-3); EOS % 0 % (0-3); HEMATOCRIT 38.6 % (36.0-47.0); HEMOGLOBIN 12.1 g/dL (12.0-15.5); LYMPH # 1.2 x10^3/uL (1.0-4.8); LYMPH % 7 % (24-48); MEAN CORPUSCULAR HEMOGLOBIN 25 pg (25-35); MEAN CORPUSCULAR HGB CONC 31 g/dL (31-37); MEAN CORPUSCULAR VOLUME 81 fL (79-100); MONO # 3.3 x10^3/uL (0.0-1.1); MONO % 19 % (0-9); NEUT # 12.6 x10^3uL (1.8-7.7); NEUT % 73 % (31-73); PLATELET COUNT 165 x10^3/uL (140-400); RED BLOOD COUNT 4.79 x10^6/uL (3.50-5.40); RED CELL DISTRIBUTION WIDTH 18.8 % (11.5-14.5); WHITE BLOOD COUNT 17.3 x10^3/uL (4.0-11.0)
[2017-09-06] MEDS: METOPROLOL TART IMMED RELEASE 25 MG TABLET. PO ×2 (08:43→22:53)
[2017-09-06] MEDS: LIDOCAINE (700MG/PATCH) PATCH. TD (08:44)
[2017-09-06 08:48] LABS: ALBUMIN 1.9 g/dL (3.4-5.0); ANION GAP 5 (6-14); BLOOD UREA NITROGEN 27 mg/dL (7-20); CALCIUM 8.6 mg/dL (8.5-10.1); CARBON DIOXIDE 29 mmol/L (21-32); CHLORIDE 98 mmol/L (98-107); CREATININE 2.6 mg/dL (0.6-1.0); GFR 21.4; GLUCOSE 87 mg/dL (70-99); MAGNESIUM 2.2 mg/dL (1.8-2.4); PHOSPHORUS 3.3 mg/dL (2.6-4.7); POTASSIUM 4.3 mmol/L (3.5-5.1); SODIUM 132 mmol/L (136-145)
[2017-09-06] MEDS: HEPARIN PF for SUB-Q USE 5,000 UNIT/0.5 ML VIAL. SQ ×2 (08:54→21:18)
[2017-09-06 09:51] LABS: POC GLUCOSE 80 mg/dL (70-99)
[2017-09-06] MEDS: HYDROcodone/APAP 5/325MG 1 TAB TABLET PO (09:57)
[2017-09-06] MEDS: MEROPENEM 500 MG in IV NORMAL SALINE 50ML 50 ML IV (10:06)
[2017-09-06 11:34] LABS: POC GLUCOSE 114 mg/dL (70-99)
[2017-09-06 11:39] LABS: POC GLUCOSE 140 mg/dL (70-99)
[2017-09-06 12:14] LABS: VITAMIN-B12 1134 pg/mL (247-911)
[2017-09-06 12:15] LABS: THYROID STIM HORMONE (TSH) 4.117 uIU/mL (0.358-3.74)
[2017-09-06] MEDS: NORMAL SALINE IV (12:46)
[2017-09-06] MEDS: DAPTOMYCIN IV (12:46)
[2017-09-06 16:22] LABS: BILIRUBIN,URINE SMALL (NEG); CLARITY,URINE CLOUDY; GLUCOSE,URINE NEGATIVE (NEG); NITRITE,URINE NEGATIVE (NEG); PH,URINE 5.5; PROTEIN,URINE >=300 mg/dL (NEG-TRACE)
[2017-09-06 16:37] LABS: COLOR,URINE AMBER
[2017-09-06 16:41] LABS: BACTERIA,URINE FEW /HPF (0-FEW); RBC,URINE RARE /HPF (0-2); SQUAMOUS EPITHELIAL CELL,UR MANY /LPF; WBC,URINE OCC /HPF (0-4)
[2017-09-06 16:55] LABS: POC GLUCOSE 74 mg/dL (70-99)
[2017-09-06 20:40] LABS: POC GLUCOSE 101 mg/dL (70-99)
[2017-09-06] MEDS: PATCH REMOVAL. MC (21:00)
[2017-09-07] MEDS: hydrALAZINE 20 MG/ML VIAL. IVP (03:02)
[2017-09-07] MEDS: HYDROcodone/APAP 5/325MG 1 TAB TABLET PO ×3 (03:56→20:19)
[2017-09-07] MEDS: AMINO AC 3%/ELECTROLYTE/GLYCER 1,000 ML IV ×2 (06:00→16:06)
[2017-09-07 07:06] LABS: POC GLUCOSE 94 mg/dL (70-99)
[2017-09-07] MEDS: ASPIRIN ENTERIC COATED 81 MG TABLET.DR. PO (08:18)
[2017-09-07] MEDS: METOPROLOL TART IMMED RELEASE 25 MG TABLET. PO ×2 (08:19→20:19)
[2017-09-07] MEDS: LIDOCAINE (700MG/PATCH) PATCH. TD (08:20)
[2017-09-07] MEDS: HEPARIN PF for SUB-Q USE 5,000 UNIT/0.5 ML VIAL. SQ ×2 (08:39→20:30)
[2017-09-07] MEDS: MEROPENEM 500 MG in IV NORMAL SALINE 50ML 50 ML IV (10:41)
[2017-09-07 11:31] LABS: POC GLUCOSE 120 mg/dL (70-99)
[2017-09-07] MEDS: CHOLECALCIFEROL (VITAMIN D3) 1,000 UNIT TABLET PO (12:05)
[2017-09-07] MEDS ORDERED: IV NORMAL SALINE 1000ML BAG 1,000 ML IV ×2 (15:48)
[2017-09-07] MEDS ORDERED: DIALYSIS PATIENT. MC (16:00)
[2017-09-07] MEDS ORDERED: diphenhydrAMINE 50 MG/ML VIAL IV ×2 (16:00)
[2017-09-07] MEDS: LABETALOL 20 MG/4 ML DISP.SYRIN. IVP (18:23)
[2017-09-07] MEDS: PATCH REMOVAL. MC (20:19)
[2017-09-07 21:28] LABS: POC GLUCOSE 84 mg/dL (70-99)
[2017-09-08] MEDS: CHOLECALCIFEROL (VITAMIN D3) 1,000 UNIT TABLET PO (07:57)
[2017-09-08] MEDS: ASPIRIN ENTERIC COATED 81 MG TABLET.DR. PO (07:57)
[2017-09-08] MEDS: METOPROLOL TART IMMED RELEASE 25 MG TABLET. PO (07:58)
[2017-09-08 08:00] LABS: POC GLUCOSE 96 mg/dL (70-99)
[2017-09-08] MEDS: LIDOCAINE (700MG/PATCH) PATCH. TD (08:06)
[2017-09-08] MEDS: HEPARIN PF for SUB-Q USE 5,000 UNIT/0.5 ML VIAL. SQ ×2 (08:14→20:07)
[2017-09-08] MEDS: AMINO AC 3%/ELECTROLYTE/GLYCER 1,000 ML IV (08:15)
[2017-09-08 08:32] LABS: MAGNESIUM 2.1 mg/dL (1.8-2.4)
[2017-09-08 08:36] LABS: ALBUMIN 1.9 g/dL (3.4-5.0); ANION GAP 6 (6-14); BLOOD UREA NITROGEN 22 mg/dL (7-20); CALCIUM 8.5 mg/dL (8.5-10.1); CARBON DIOXIDE 29 mmol/L (21-32); CHLORIDE 96 mmol/L (98-107); CREATININE 2.2 mg/dL (0.6-1.0); GFR 25.9; GLUCOSE 89 mg/dL (70-99); PHOSPHORUS 2.7 mg/dL (2.6-4.7); POTASSIUM 4.3 mmol/L (3.5-5.1); SODIUM 131 mmol/L (136-145)
[2017-09-08] MEDS: cloNIDine TTS-2 1 PATCH PATCH TD (10:00)
[2017-09-08] MEDS ORDERED: METOPROLOL TART IMMED RELEASE 25 MG TABLET. PO (10:15)
[2017-09-08] MEDS: MEROPENEM 500 MG in IV NORMAL SALINE 50ML 50 ML IV (11:00)
[2017-09-08 11:37] LABS: POC GLUCOSE 159 mg/dL (70-99)
[2017-09-08] MEDS: DAPTOMYCIN IV (16:16)
[2017-09-08] MEDS: NORMAL SALINE IV (16:16)
[2017-09-08] MEDS: hydrALAZINE 20 MG/ML VIAL. IVP ×2 (16:22→20:03)
[2017-09-08] MEDS: HYDROcodone/APAP 5/325MG 1 TAB TABLET PO (20:03)
[2017-09-08] MEDS: PATCH REMOVAL. MC (20:08)
[2017-09-09] MEDS: hydrALAZINE 20 MG/ML VIAL. IVP ×4 (02:56→23:16)
[2017-09-09] MEDS: HYDROcodone/APAP 5/325MG 1 TAB TABLET PO ×2 (02:57→23:05)
[2017-09-09] MEDS: AMINO AC 3%/ELECTROLYTE/GLYCER 1,000 ML IV ×2 (05:11→23:40)
[2017-09-09 07:51] LABS: POC GLUCOSE 83 mg/dL (70-99)
[2017-09-09] MEDS: CHOLECALCIFEROL (VITAMIN D3) 1,000 UNIT TABLET PO (08:58)
[2017-09-09] MEDS: ASPIRIN ENTERIC COATED 81 MG TABLET.DR. PO (08:59)
[2017-09-09] MEDS: HEPARIN PF for SUB-Q USE 5,000 UNIT/0.5 ML VIAL. SQ ×2 (09:07→23:09)
[2017-09-09] MEDS: LIDOCAINE (700MG/PATCH) PATCH. TD (09:08)
[2017-09-09] MEDS ORDERED: POLYETHYLENE GLYCOL 3350 238 GM POWDER PO (11:00)
[2017-09-09] MEDS: PANTOPRAZOLE 40 MG TABLET.DR. PO (11:00)
[2017-09-09] MEDS ORDERED: ACETAMINOPHEN 500 MG TABLET PO (11:00)
[2017-09-09] MEDS: LEVOTHYROXINE 125 MCG TABLET PO (11:00)
[2017-09-09] MEDS: TIMOLOL 0.25% OPHTH SOLUTION 5ML BOTTLE. OD ×2 (11:15→23:07)
[2017-09-09] MEDS: MEROPENEM 500 MG in IV NORMAL SALINE 50ML 50 ML IV (11:24)
[2017-09-09 11:41] LABS: POC GLUCOSE 129 mg/dL (70-99)
[2017-09-09 12:16] LABS: HEMATOCRIT 40.5 % (36.0-47.0); MEAN CORPUSCULAR HEMOGLOBIN 25 pg (25-35); MEAN CORPUSCULAR HGB CONC 32 g/dL (31-37); MEAN CORPUSCULAR VOLUME 78 fL (79-100); PLATELET COUNT 327 x10^3/uL (140-400); RED BLOOD COUNT 5.23 x10^6/uL (3.50-5.40); RED CELL DISTRIBUTION WIDTH 18.5 % (11.5-14.5); WHITE BLOOD COUNT 26.6 x10^3/uL (4.0-11.0)
[2017-09-09 12:25] LABS: ANION GAP 6 (6-14); BLOOD UREA NITROGEN 30 mg/dL (7-20); BUN/CREATININE RATIO 11 (6-20); CALCIUM 8.6 mg/dL (8.5-10.1); CARBON DIOXIDE 27 mmol/L (21-32); CHLORIDE 93 mmol/L (98-107); CREATININE 2.8 mg/dL (0.6-1.0); GFR 19.6; GLUCOSE 119 mg/dL (70-99); POTASSIUM 4.6 mmol/L (3.5-5.1); SODIUM 126 mmol/L (136-145)
[2017-09-09 12:28] LABS: PHOSPHORUS 2.8 mg/dL (2.6-4.7)
[2017-09-09 12:30] LABS: ALBUMIN 1.8 g/dL (3.4-5.0); ALBUMIN/GLOBULIN RATIO 0.3 (1.0-1.7); ALK PHOS 118 U/L (46-116); AST (SGOT) 20 U/L (15-37); TOTAL BILIRUBIN 0.6 mg/dL (0.2-1.0); TOTAL PROTEIN 7.1 g/dL (6.4-8.2)
[2017-09-09 12:32] LABS: ALT (SGPT) < 6 U/L (14-59)
[2017-09-09] MEDS: IPRATRPIUM/ALBUTEROL 0.5/2.5MG 3 ML NEBU. NEB ×3 (13:04→20:31)
[2017-09-09 16:17] LABS: POC GLUCOSE 92 mg/dL (70-99)
[2017-09-09] MEDS ORDERED: POLYETHYLENE GLYCOL 3350 17 GM PACKET. PO (19:50)
[2017-09-09] MEDS ORDERED: CARVEDILOL 6.25 MG TABLET. PO (21:00)
[2017-09-09] MEDS: PATCH REMOVAL. MC (21:00)
[2017-09-09 21:58] LABS: POC GLUCOSE 79 mg/dL (70-99)
[2017-09-09] MEDS: CETIRIZINE HCL 10 MG TABLET. PO (23:05)
[2017-09-09] MEDS: IV NORMAL SALINE 1000ML BAG 1,000 ML IV (23:12)
[2017-09-09] MEDS: cloNIDine TTS-2 1 PATCH PATCH TD (23:14)
[2017-09-10] MEDS: LEVOTHYROXINE 125 MCG TABLET PO (06:00)
[2017-09-10] MEDS: PANTOPRAZOLE 40 MG TABLET.DR. PO (06:00)
[2017-09-10] MEDS: IPRATRPIUM/ALBUTEROL 0.5/2.5MG 3 ML NEBU. NEB ×4 (07:43→20:23)
[2017-09-10] MEDS: IV NORMAL SALINE 1000ML BAG 1,000 ML IV (08:20)
[2017-09-10] MEDS: hydrALAZINE 20 MG/ML VIAL. IVP ×4 (08:44→21:12)
[2017-09-10] MEDS ORDERED: LISINOPRIL 10 MG TABLET PO (09:00)
[2017-09-10] MEDS ORDERED: DIALYSIS PATIENT. MC ×2 (09:30)
[2017-09-10] MEDS ORDERED: IV NORMAL SALINE 1000ML BAG 1,000 ML IV ×2 (09:30)
[2017-09-10] MEDS ORDERED: ALBUMIN HUMAN 25% 200 ML IV (09:30)
[2017-09-10 09:46] LABS: INR 1.3 (0.8-1.1); PROTHROMBIN TIME PATIENT 15.8 SEC (11.7-14.0)
[2017-09-10] MEDS: ALBUTEROL SULFATE 2.5 MG/3 ML NEBU. NEB (09:46)
[2017-09-10] MEDS ORDERED: PROPOFOL 20 ML IV (09:48)
[2017-09-10 09:56] LABS: ALBUMIN 1.7 g/dL (3.4-5.0); ANION GAP 5 (6-14); BLOOD UREA NITROGEN 33 mg/dL (7-20); CALCIUM 8.3 mg/dL (8.5-10.1); CARBON DIOXIDE 26 mmol/L (21-32); CHLORIDE 94 mmol/L (98-107); CREATININE 2.8 mg/dL (0.6-1.0); GFR 19.6; GLUCOSE 68 mg/dL (70-99); POTASSIUM 4.8 mmol/L (3.5-5.1); SODIUM 125 mmol/L (136-145)
[2017-09-10 12:51] LABS: HEPATITIS B SURFACE AG Nonreactive (Nonreactive)
[2017-09-10 13:18] LABS: HEPATITIS B CORE AB(IGM) Nonreactive (Nonreactive)
[2017-09-10] MEDS: ASPIRIN ENTERIC COATED 81 MG TABLET.DR. PO (13:24)
[2017-09-10] MEDS: CHOLECALCIFEROL (VITAMIN D3) 1,000 UNIT TABLET PO (13:24)
[2017-09-10] MEDS: TIMOLOL 0.25% OPHTH SOLUTION 5ML BOTTLE. OD ×2 (13:25→23:23)
[2017-09-10] MEDS: MEROPENEM 500 MG in IV NORMAL SALINE 50ML 50 ML IV (13:25)
[2017-09-10] MEDS: LIDOCAINE (700MG/PATCH) PATCH. TD ×2 (13:30→19:19)
[2017-09-10] MEDS: HEPARIN PF for SUB-Q USE 5,000 UNIT/0.5 ML VIAL. SQ ×2 (13:32→21:13)
[2017-09-10 13:34] LABS: HEPATITIS B SURFACE AB Reactive
[2017-09-10] MEDS: DIGOXIN IV 500 MCG/2 ML AMPUL. IV (16:45)
[2017-09-10] MEDS: dilTIAZem INJ 125 MG in IV DEXTROSE 5% 100ML 100 ML IV (18:14)
[2017-09-10] MEDS: dilTIAZem IV PUSH 25 MG/5 ML VIAL IVP (18:14)
[2017-09-10] MEDS: VANCOMYCIN PER PHARMACY MC (19:19)
[2017-09-10] MEDS: DEXTROSE 50% 25 GM / 50ML DISP.SYRIN. IV ×2 (21:00→23:22)
[2017-09-10] MEDS: PATCH REMOVAL. MC (21:00)
[2017-09-10 21:12] LABS: POC GLUCOSE 41 mg/dL (70-99)
[2017-09-10 21:30] LABS: GLUCOSE 159 mg/dL (70-99)
[2017-09-10] MEDS: VANCOMYCIN 1.5 GM in IV 1/2 NORMAL SALINE 500 ML IV (21:49)
[2017-09-10] MEDS: AMINO AC 3%/ELECTROLYTE/GLYCER 1,000 ML IV (23:23)
[2017-09-10] MEDS: CETIRIZINE HCL 10 MG TABLET. PO (23:23)
[2017-09-11 01:01] LABS: POC GLUCOSE 52 mg/dL (70-99)
[2017-09-11 01:45] LABS: POC GLUCOSE 63 mg/dL (70-99)
[2017-09-11] MEDS: DEXTROSE 50% 25 GM / 50ML DISP.SYRIN. IV ×4 (02:13→21:34)
[2017-09-11] MEDS: cloNIDine HCL 0.1 MG TABLET PO (03:27)
[2017-09-11 05:28] LABS: ADD MAN DIFF? NO
[2017-09-11 05:38] LABS: BASO # 0.1 x10^3/uL (0.0-0.2); BASO % 0 % (0-3); EOS % 0 % (0-3); HEMATOCRIT 36.2 % (36.0-47.0); HEMOGLOBIN 11.4 g/dL (12.0-15.5); LYMPH # 1.2 x10^3/uL (1.0-4.8); LYMPH % 5 % (24-48); MEAN CORPUSCULAR HEMOGLOBIN 25 pg (25-35); MEAN CORPUSCULAR HGB CONC 32 g/dL (31-37); MEAN CORPUSCULAR VOLUME 78 fL (79-100); MONO # 4.1 x10^3/uL (0.0-1.1); MONO % 18 % (0-9); NEUT # 17.8 x10^3uL (1.8-7.7); NEUT % 77 % (31-73); PLATELET COUNT 277 x10^3/uL (140-400); RED BLOOD COUNT 4.67 x10^6/uL (3.50-5.40); RED CELL DISTRIBUTION WIDTH 18.6 % (11.5-14.5); WHITE BLOOD COUNT 23.2 x10^3/uL (4.0-11.0)
[2017-09-11 06:15] LABS: POC GLUCOSE 69 mg/dL (70-99)
[2017-09-11 06:16] LABS: ALBUMIN 1.6 g/dL (3.4-5.0); ANION GAP 7 (6-14); BLOOD UREA NITROGEN 23 mg/dL (7-20); CALCIUM 7.9 mg/dL (8.5-10.1); CARBON DIOXIDE 25 mmol/L (21-32); CHLORIDE 97 mmol/L (98-107); CREATININE 2.5 mg/dL (0.6-1.0); GFR 22.4; GLUCOSE 66 mg/dL (70-99); PHOSPHORUS 2.7 mg/dL (2.6-4.7); POTASSIUM 4.5 mmol/L (3.5-5.1); SODIUM 129 mmol/L (136-145)
[2017-09-11] MEDS: LEVOTHYROXINE 125 MCG TABLET PO (07:00)
[2017-09-11] MEDS: PANTOPRAZOLE 40 MG TABLET.DR. PO (07:30)
[2017-09-11] MEDS: ASPIRIN ENTERIC COATED 81 MG TABLET.DR. PO (08:00)
[2017-09-11 08:05] LABS: POC GLUCOSE 104 mg/dL (70-99)
[2017-09-11] MEDS: CHOLECALCIFEROL (VITAMIN D3) 1,000 UNIT TABLET PO (09:00)
[2017-09-11] MEDS: TIMOLOL 0.25% OPHTH SOLUTION 5ML BOTTLE. OD ×2 (09:00→21:00)
[2017-09-11] MEDS: IPRATRPIUM/ALBUTEROL 0.5/2.5MG 3 ML NEBU. NEB ×4 (09:15→20:00)
[2017-09-11] MEDS: hydrALAZINE 20 MG/ML VIAL. IVP ×4 (09:45→19:51)
[2017-09-11] MEDS: HEPARIN PF for SUB-Q USE 5,000 UNIT/0.5 ML VIAL. SQ ×2 (09:56→19:53)
[2017-09-11 09:58] LABS: POC GLUCOSE 71 mg/dL (70-99)
[2017-09-11] MEDS: VANCOMYCIN PER PHARMACY MC (10:35)
[2017-09-11 11:20] LABS: POC GLUCOSE 72 mg/dL (70-99)
[2017-09-11] MEDS: IV NORMAL SALINE 1000ML BAG 1,000 ML IV (13:51)
[2017-09-11 16:45] LABS: POC GLUCOSE 63 mg/dL (70-99)
[2017-09-11 17:29] LABS: POC GLUCOSE 92 mg/dL (70-99)
[2017-09-11] MEDS: dilTIAZem INJ 125 MG in IV DEXTROSE 5% 100ML 100 ML IV (19:42)
[2017-09-11] MEDS: CETIRIZINE HCL 10 MG TABLET. PO (19:54)
[2017-09-11] MEDS: PATCH REMOVAL. MC (21:00)
[2017-09-11 21:20] LABS: POC GLUCOSE 66 mg/dL (70-99)
[2017-09-11 22:14] LABS: C DIFF BY PCR Negative (Negative)
[2017-09-11 23:15] LABS: POC GLUCOSE 83 mg/dL (70-99)
[2017-09-12] MEDS: ACETAMINOPHEN 325 MG SUPP.RECT. PR ×2 (03:03→19:54)
[2017-09-12] MEDS: cloNIDine HCL 0.2 MG TABLET PO (03:03)
[2017-09-12] MEDS: IV NORMAL SALINE 1000ML BAG 1,000 ML IV (04:22)
[2017-09-12 05:53] LABS: ANION GAP 6 (6-14); BLOOD UREA NITROGEN 27 mg/dL (7-20); CALCIUM 7.9 mg/dL (8.5-10.1); CARBON DIOXIDE 26 mmol/L (21-32); CHLORIDE 98 mmol/L (98-107); CREATININE 2.7 mg/dL (0.6-1.0); GFR 20.5; GLUCOSE 61 mg/dL (70-99); POTASSIUM 4.9 mmol/L (3.5-5.1); SODIUM 130 mmol/L (136-145)
[2017-09-12] MEDS: PANTOPRAZOLE IV PUSH 40 MG VIAL. IVP (06:27)
[2017-09-12] MEDS: IPRATRPIUM/ALBUTEROL 0.5/2.5MG 3 ML NEBU. NEB ×4 (07:39→19:45)
[2017-09-12 07:48] LABS: POC GLUCOSE 59 mg/dL (70-99)
[2017-09-12] MEDS: NORMAL SALINE IVP (07:56)
[2017-09-12] MEDS: LEVOTHYROXINE SODIUM IVP (07:56)
[2017-09-12] MEDS: DEXTROSE 50% 25 GM / 50ML DISP.SYRIN. IV ×4 (07:56→23:59)
[2017-09-12] MEDS: ASPIRIN ENTERIC COATED 81 MG TABLET.DR. PO (08:00)
[2017-09-12] MEDS ORDERED: IV NORMAL SALINE 1000ML BAG 1,000 ML IV ×2 (08:01)
[2017-09-12] MEDS ORDERED: DIALYSIS PATIENT. MC ×2 (08:15)
[2017-09-12] MEDS ORDERED: DRIP IV (09:00)
[2017-09-12] MEDS ORDERED: NORMAL SALINE IV (09:00)
[2017-09-12] MEDS: CHOLECALCIFEROL (VITAMIN D3) 1,000 UNIT TABLET PO (09:00)
[2017-09-12] MEDS ORDERED: PANTOPRAZOLE SODIUM IV (09:00)
[2017-09-12 09:20] LABS: POC GLUCOSE 69 mg/dL (70-99)
[2017-09-12 09:32] LABS: POC GLUCOSE 74 mg/dL (70-99)
[2017-09-12] MEDS: VANCOMYCIN PER PHARMACY MC (09:46)
[2017-09-12 10:23] LABS: POC GLUCOSE 71 mg/dL (70-99)
[2017-09-12 11:24] LABS: POC GLUCOSE 72 mg/dL (70-99)
[2017-09-12] MEDS: hydrALAZINE 20 MG/ML VIAL. IVP ×4 (13:00→21:14)
[2017-09-12] MEDS: TIMOLOL 0.25% OPHTH SOLUTION 5ML BOTTLE. OD ×2 (13:13→19:54)
[2017-09-12] MEDS: LIDOCAINE (700MG/PATCH) PATCH. TD (13:14)
[2017-09-12] MEDS: HEPARIN PF for SUB-Q USE 5,000 UNIT/0.5 ML VIAL. SQ ×3 (13:35→21:00)
[2017-09-12] MEDS: VANCOMYCIN 500 MG in IV NORMAL SALINE 100ML 100 ML IV (15:30)
[2017-09-12] MEDS: DEXTROSE 5% IV (15:32)
[2017-09-12] MEDS: GENTAMICIN SULFATE IV (15:32)
[2017-09-12 16:09] LABS: POC GLUCOSE 60 mg/dL (70-99)
[2017-09-12 16:24] LABS: URIC ACID 3.7 mg/dL (2.6-6.0)
[2017-09-12] MEDS: AMINO AC 3%/ELECTROLYTE/GLYCER 1,000 ML IV ×2 (16:32→17:00)
[2017-09-12 16:49] LABS: POC GLUCOSE 100 mg/dL (70-99)
[2017-09-12 17:07] LABS: SEDIMENTATION RATE 32 (0-25)
[2017-09-12 17:10] LABS: PROCALCITONIN 1.25 ng/mL (0.00-0.10)
[2017-09-12] MEDS: METOPROLOL TARTRATE 5 MG/5 ML VIAL. IVP ×2 (17:32→23:58)
[2017-09-12] MEDS: CETIRIZINE HCL 10 MG TABLET. PO (19:55)
[2017-09-12 20:43] LABS: POC GLUCOSE 69 mg/dL (70-99)
[2017-09-12] MEDS: PATCH REMOVAL. MC (21:00)
[2017-09-13 00:45] LABS: POC GLUCOSE 61 mg/dL (70-99)
[2017-09-13 00:46] LABS: POC GLUCOSE 116 mg/dL (70-99)
[2017-09-13] MEDS: IV NORMAL SALINE 1000ML BAG 1,000 ML IV ×2 (03:00→06:09)
[2017-09-13 04:50] LABS: BASO # 0.1 x10^3/uL (0.0-0.2); BASO % 1 % (0-3); EOS % 0 % (0-3); HEMATOCRIT 36.1 % (36.0-47.0); HEMOGLOBIN 11.6 g/dL (12.0-15.5); LYMPH # 1.4 x10^3/uL (1.0-4.8); LYMPH % 5 % (24-48); MEAN CORPUSCULAR HEMOGLOBIN 25 pg (25-35); MEAN CORPUSCULAR HGB CONC 32 g/dL (31-37); MEAN CORPUSCULAR VOLUME 78 fL (79-100); MONO # 7.6 x10^3/uL (0.0-1.1); MONO % 29 % (0-9); NEUT # 17.5 x10^3uL (1.8-7.7); NEUT % 66 % (31-73); PLATELET COUNT 316 x10^3/uL (140-400); RED BLOOD COUNT 4.65 x10^6/uL (3.50-5.40); RED CELL DISTRIBUTION WIDTH 18.3 % (11.5-14.5); WHITE BLOOD COUNT 26.6 x10^3/uL (4.0-11.0)
[2017-09-13 04:51] LABS: ADD MAN DIFF? YES
[2017-09-13] MEDS: METOPROLOL TARTRATE 5 MG/5 ML VIAL. IVP ×4 (06:17→23:45)
[2017-09-13 06:42] LABS: POC GLUCOSE 61 mg/dL (70-99)
[2017-09-13] MEDS: DEXTROSE 50% 25 GM / 50ML DISP.SYRIN. IV ×3 (06:45→23:46)
[2017-09-13 07:14] LABS: % BANDS 2 % (0-9); % LYMPHS 7 % (24-48); % MONOS 8 % (0-10); % SEGS 83 % (35-66); PLT ESTIMATE ADEQUATE (ADEQUATE)
[2017-09-13] MEDS: IPRATRPIUM/ALBUTEROL 0.5/2.5MG 3 ML NEBU. NEB ×4 (07:20→20:23)
[2017-09-13] MEDS: PANTOPRAZOLE IV PUSH 40 MG VIAL. IVP (07:30)
[2017-09-13] MEDS: ASPIRIN ENTERIC COATED 81 MG TABLET.DR. PO (08:00)
[2017-09-13] MEDS: DEXTROSE ORAL GEL 15 GM TUBE. PO (08:52)
[2017-09-13] MEDS: TIMOLOL 0.25% OPHTH SOLUTION 5ML BOTTLE. OD ×2 (08:52→21:25)
[2017-09-13] MEDS: LIDOCAINE (700MG/PATCH) PATCH. TD (08:52)
[2017-09-13] MEDS: hydrALAZINE 20 MG/ML VIAL. IVP ×4 (09:00→21:25)
[2017-09-13] MEDS: LEVOTHYROXINE SODIUM IVP (09:00)
[2017-09-13] MEDS: CHOLECALCIFEROL (VITAMIN D3) 1,000 UNIT TABLET PO (09:00)
[2017-09-13] MEDS: NORMAL SALINE IVP (09:00)
[2017-09-13] MEDS: HEPARIN PF for SUB-Q USE 5,000 UNIT/0.5 ML VIAL. SQ ×2 (09:00→21:35)
[2017-09-13] MEDS: GENTAMICIN PER PHARMACY. MC (12:34)
[2017-09-13 12:36] LABS: POC GLUCOSE 59 mg/dL (70-99)
[2017-09-13 12:36] LABS: POC GLUCOSE 68 mg/dL (70-99)
[2017-09-13 12:36] LABS: POC GLUCOSE 75 mg/dL (70-99)
[2017-09-13] MEDS: VANCOMYCIN PER PHARMACY MC (12:45)
[2017-09-13] MEDS: AMINO AC 3%/ELECTROLYTE/GLYCER 1,000 ML IV (13:00)
[2017-09-13 13:01] LABS: POC GLUCOSE 95 mg/dL (70-99)
[2017-09-13] MEDS: HYDROcodone/APAP 5/325MG 1 TAB TABLET PO (16:11)
[2017-09-13] MEDS: cloNIDine HCL 0.2 MG TABLET PO (16:12)
[2017-09-13] MEDS: CETIRIZINE HCL 10 MG TABLET. PO (21:00)
[2017-09-13] MEDS: PATCH REMOVAL. MC (21:00)
[2017-09-13 21:05] LABS: POC GLUCOSE 56 mg/dL (70-99)
[2017-09-13 21:05] LABS: POC GLUCOSE 71 mg/dL (70-99)
[2017-09-13 21:32] LABS: POC GLUCOSE 126 mg/dL (70-99)
[2017-09-13 23:46] LABS: POC GLUCOSE 59 mg/dL (70-99)
[2017-09-14 00:35] LABS: POC GLUCOSE 118 mg/dL (70-99)
[2017-09-14] MEDS: AMINO AC 3%/ELECTROLYTE/GLYCER 1,000 ML IV (03:06)
[2017-09-14] MEDS: METOPROLOL TARTRATE 5 MG/5 ML VIAL. IVP ×4 (04:51→23:53)
[2017-09-14 05:06] LABS: ADD MAN DIFF? NO
[2017-09-14 05:10] LABS: BASO # 0.1 x10^3/uL (0.0-0.2); BASO % 1 % (0-3); EOS % 0 % (0-3); HEMATOCRIT 35.6 % (36.0-47.0); HEMOGLOBIN 11.3 g/dL (12.0-15.5); LYMPH # 1.9 x10^3/uL (1.0-4.8); LYMPH % 7 % (24-48); MEAN CORPUSCULAR HEMOGLOBIN 25 pg (25-35); MEAN CORPUSCULAR HGB CONC 32 g/dL (31-37); MEAN CORPUSCULAR VOLUME 78 fL (79-100); MONO # 6.9 x10^3/uL (0.0-1.1); MONO % 26 % (0-9); NEUT # 17.7 x10^3uL (1.8-7.7); NEUT % 66 % (31-73); PLATELET COUNT 358 x10^3/uL (140-400); RED BLOOD COUNT 4.58 x10^6/uL (3.50-5.40); RED CELL DISTRIBUTION WIDTH 18.6 % (11.5-14.5); WHITE BLOOD COUNT 26.7 x10^3/uL (4.0-11.0)
[2017-09-14] MEDS: GENTAMICIN RANDOM LEVEL. MC (05:12)
[2017-09-14] MEDS: VANCOMYCIN RANDOM LEVEL. MC (05:12)
[2017-09-14 05:36] LABS: ANION GAP 7 (6-14); BLOOD UREA NITROGEN 22 mg/dL (7-20); CALCIUM 8.3 mg/dL (8.5-10.1); CARBON DIOXIDE 29 mmol/L (21-32); CHLORIDE 100 mmol/L (98-107); CREATININE 2.6 mg/dL (0.6-1.0); GFR 21.4; GLUCOSE 77 mg/dL (70-99); POTASSIUM 4.6 mmol/L (3.5-5.1); SODIUM 136 mmol/L (136-145)
[2017-09-14] MEDS: DEXTROSE 50% 25 GM / 50ML DISP.SYRIN. IV ×2 (05:50→14:50)
[2017-09-14 06:07] LABS: POC GLUCOSE 72 mg/dL (70-99)
[2017-09-14 06:07] LABS: POC GLUCOSE 153 mg/dL (70-99)
[2017-09-14] MEDS: ASPIRIN ENTERIC COATED 81 MG TABLET.DR. PO (07:12)
[2017-09-14] MEDS: CHOLECALCIFEROL (VITAMIN D3) 1,000 UNIT TABLET PO (07:12)
[2017-09-14] MEDS: LIDOCAINE (700MG/PATCH) PATCH. TD (08:04)
[2017-09-14] MEDS: PANTOPRAZOLE IV PUSH 40 MG VIAL. IVP (08:04)
[2017-09-14] MEDS: hydrALAZINE 20 MG/ML VIAL. IVP ×4 (08:05→23:53)
[2017-09-14] MEDS: NORMAL SALINE IVP (08:11)
[2017-09-14] MEDS: LEVOTHYROXINE SODIUM IVP (08:11)
[2017-09-14] MEDS: TIMOLOL 0.25% OPHTH SOLUTION 5ML BOTTLE. OD ×2 (08:12→20:53)
[2017-09-14] MEDS: HEPARIN PF for SUB-Q USE 5,000 UNIT/0.5 ML VIAL. SQ ×2 (08:13→20:52)
[2017-09-14] MEDS: IPRATRPIUM/ALBUTEROL 0.5/2.5MG 3 ML NEBU. NEB ×4 (08:31→19:58)
[2017-09-14] MEDS: GENTAMICIN PER PHARMACY. MC (09:27)
[2017-09-14] MEDS: VANCOMYCIN PER PHARMACY MC (09:29)
[2017-09-14] MEDS ORDERED: IV NORMAL SALINE 1000ML BAG 1,000 ML IV ×2 (09:37)
[2017-09-14] MEDS ORDERED: LABETALOL 20 MG/4 ML DISP.SYRIN. IVP (09:45)
[2017-09-14] MEDS ORDERED: DIALYSIS PATIENT. MC ×2 (09:45)
[2017-09-14 11:37] LABS: PHOSPHORUS 3.6 mg/dL (2.6-4.7)
[2017-09-14 11:37] LABS: TRIGLYCERIDES 121 mg/dL (0-150)
[2017-09-14] MEDS: TPN PER PHARMACY MC ×3 (13:30→13:39)
[2017-09-14] MEDS: fentaNYL PF VIAL 100 MCG/2 ML VIAL IV ×3 (14:28→20:46)
[2017-09-14] MEDS: NORMAL SALINE IV (14:28)
[2017-09-14] MEDS: GENTAMICIN SULFATE IV (14:28)
[2017-09-14] MEDS: VANCOMYCIN 500 MG in IV NORMAL SALINE 100ML 100 ML IV (15:51)
[2017-09-14] MEDS: cloNIDine TTS-3 1 PATCH PATCH.TDWK TD (15:52)
[2017-09-14] MEDS ORDERED: TOTAL PARENTERAL NUTRITION 0 ML, AMINO ACIDS 10 % 60 GM, DEXTROSE 70 % IN WATER 195 GM,... IV (16:00)
[2017-09-14] MEDS: LABETALOL 20 MG/4 ML DISP.SYRIN. IVP (16:33)
[2017-09-14 16:42] LABS: POC GLUCOSE 91 mg/dL (70-99)
[2017-09-14 16:42] LABS: POC GLUCOSE 65 mg/dL (70-99)
[2017-09-14 20:20] LABS: POC GLUCOSE 76 mg/dL (70-99)
[2017-09-14] MEDS: PATCH REMOVAL. MC (20:53)
[2017-09-14] MEDS: CETIRIZINE HCL 10 MG TABLET. PO (21:00)
[2017-09-14] MEDS: AMINO ACIDS IV (21:36)
[2017-09-14] MEDS: DEXTROSE 70% IV (21:36)
[2017-09-14] MEDS: TOTAL PARENTERAL NUTRITION IV (21:36)
[2017-09-14] MEDS: [UNRECOGNIZED DRUG - OTHER] IV (21:36)
[2017-09-14 23:49] LABS: POC GLUCOSE 109 mg/dL (70-99)
[2017-09-15] MEDS: METOPROLOL TARTRATE 5 MG/5 ML VIAL. IVP ×4 (05:45→23:46)
[2017-09-15] MEDS: hydrALAZINE 20 MG/ML VIAL. IVP ×4 (05:47→23:45)
[2017-09-15 05:48] LABS: ADD MAN DIFF? NO
[2017-09-15 06:03] LABS: BASO # 0.1 x10^3/uL (0.0-0.2); BASO % 1 % (0-3); EOS % 0 % (0-3); HEMATOCRIT 33.4 % (36.0-47.0); HEMOGLOBIN 10.3 g/dL (12.0-15.5); LYMPH # 1.2 x10^3/uL (1.0-4.8); LYMPH % 5 % (24-48); MEAN CORPUSCULAR HEMOGLOBIN 24 pg (25-35); MEAN CORPUSCULAR HGB CONC 31 g/dL (31-37); MEAN CORPUSCULAR VOLUME 78 fL (79-100); MONO # 6.4 x10^3/uL (0.0-1.1); MONO % 28 % (0-9); NEUT # 14.7 x10^3uL (1.8-7.7); NEUT % 66 % (31-73); PLATELET COUNT 299 x10^3/uL (140-400); WHITE BLOOD COUNT 22.5 x10^3/uL (4.0-11.0)
[2017-09-15 06:10] LABS: PHOSPHORUS 3.2 mg/dL (2.6-4.7)
[2017-09-15 06:13] LABS: ALBUMIN 1.4 g/dL (3.4-5.0); ALBUMIN/GLOBULIN RATIO 0.3 (1.0-1.7); ALK PHOS 90 U/L (46-116); ANION GAP 4 (6-14); AST (SGOT) 15 U/L (15-37); BLOOD UREA NITROGEN 17 mg/dL (7-20); BUN/CREATININE RATIO 8 (6-20); CARBON DIOXIDE 29 mmol/L (21-32); CHLORIDE 102 mmol/L (98-107); CREATININE 2.1 mg/dL (0.6-1.0); GFR 27.4; GLUCOSE 133 mg/dL (70-99); POTASSIUM 4.3 mmol/L (3.5-5.1); SODIUM 135 mmol/L (136-145); TOTAL BILIRUBIN 0.4 mg/dL (0.2-1.0)
[2017-09-15 06:17] LABS: ALT (SGPT) < 6 U/L (14-59)
[2017-09-15] MEDS: IPRATRPIUM/ALBUTEROL 0.5/2.5MG 3 ML NEBU. NEB ×4 (07:44→19:39)
[2017-09-15] MEDS: ASPIRIN ENTERIC COATED 81 MG TABLET.DR. PO (08:00)
[2017-09-15] MEDS: CHOLECALCIFEROL (VITAMIN D3) 1,000 UNIT TABLET PO (08:29)
[2017-09-15] MEDS: LIDOCAINE (700MG/PATCH) PATCH. TD (08:43)
[2017-09-15] MEDS: PANTOPRAZOLE IV PUSH 40 MG VIAL. IVP (08:43)
[2017-09-15] MEDS: NORMAL SALINE IVP (08:43)
[2017-09-15] MEDS: LEVOTHYROXINE SODIUM IVP (08:43)
[2017-09-15] MEDS: HEPARIN PF for SUB-Q USE 5,000 UNIT/0.5 ML VIAL. SQ ×2 (08:49→21:13)
[2017-09-15] MEDS: TIMOLOL 0.25% OPHTH SOLUTION 5ML BOTTLE. OD ×2 (09:00→21:00)
[2017-09-15] MEDS: GENTAMICIN PER PHARMACY. MC (09:05)
[2017-09-15] MEDS: fentaNYL PF VIAL 100 MCG/2 ML VIAL IV ×3 (09:44→19:20)
[2017-09-15] MEDS: VANCOMYCIN PER PHARMACY MC (10:40)
[2017-09-15] MEDS: TPN PER PHARMACY MC ×2 (10:48→10:57)
[2017-09-15 11:52] LABS: POC GLUCOSE 165 mg/dL (70-99)
[2017-09-15 18:39] LABS: POC GLUCOSE 165 mg/dL (70-99)
[2017-09-15] MEDS: LABETALOL 20 MG/4 ML DISP.SYRIN. IVP (20:16)
[2017-09-15] MEDS: [UNRECOGNIZED DRUG - OTHER] IV (20:46)
[2017-09-15] MEDS: AMINO ACIDS IV (20:46)
[2017-09-15] MEDS: TOTAL PARENTERAL NUTRITION IV (20:46)
[2017-09-15] MEDS: DEXTROSE 70% IV (20:46)
[2017-09-15] MEDS: CETIRIZINE HCL 10 MG TABLET. PO (21:00)
[2017-09-15] MEDS: PATCH REMOVAL. MC (21:00)
[2017-09-15 23:56] LABS: POC GLUCOSE 163 mg/dL (70-99)
[2017-09-16] MEDS: METOPROLOL TARTRATE 5 MG/5 ML VIAL. IVP ×3 (05:52→17:45)
[2017-09-16] MEDS: hydrALAZINE 20 MG/ML VIAL. IVP ×3 (05:53→18:00)
[2017-09-16 06:10] LABS: ADD MAN DIFF? NO
[2017-09-16 06:14] LABS: BASO # 0.1 x10^3/uL (0.0-0.2); BASO % 0 % (0-3); EOS % 0 % (0-3); HEMATOCRIT 32.7 % (36.0-47.0); HEMOGLOBIN 10.2 g/dL (12.0-15.5); LYMPH # 1.3 x10^3/uL (1.0-4.8); LYMPH % 7 % (24-48); MEAN CORPUSCULAR HEMOGLOBIN 25 pg (25-35); MEAN CORPUSCULAR HGB CONC 31 g/dL (31-37); MEAN CORPUSCULAR VOLUME 81 fL (79-100); MONO % 25 % (0-9); NEUT # 13.9 x10^3uL (1.8-7.7); NEUT % 68 % (31-73); PLATELET COUNT 346 x10^3/uL (140-400); RED BLOOD COUNT 4.04 x10^6/uL (3.50-5.40); RED CELL DISTRIBUTION WIDTH 19.4 % (11.5-14.5); WHITE BLOOD COUNT 20.3 x10^3/uL (4.0-11.0)
[2017-09-16] MEDS: ASPIRIN ENTERIC COATED 81 MG TABLET.DR. PO (08:00)
[2017-09-16] MEDS: IPRATRPIUM/ALBUTEROL 0.5/2.5MG 3 ML NEBU. NEB ×4 (08:04→19:46)
[2017-09-16] MEDS: PANTOPRAZOLE IV PUSH 40 MG VIAL. IVP (08:22)
[2017-09-16] MEDS: CHOLECALCIFEROL (VITAMIN D3) 1,000 UNIT TABLET PO (08:23)
[2017-09-16] MEDS: LEVOTHYROXINE SODIUM IVP (08:23)
[2017-09-16] MEDS: NORMAL SALINE IVP (08:23)
[2017-09-16] MEDS: TIMOLOL 0.25% OPHTH SOLUTION 5ML BOTTLE. OD ×2 (08:24→21:00)
[2017-09-16] MEDS: LIDOCAINE (700MG/PATCH) PATCH. TD (08:24)
[2017-09-16] MEDS: HEPARIN PF for SUB-Q USE 5,000 UNIT/0.5 ML VIAL. SQ ×2 (08:25→20:24)
[2017-09-16 09:05] LABS: ALBUMIN 1.5 g/dL (3.4-5.0); ALBUMIN/GLOBULIN RATIO 0.3 (1.0-1.7); ALK PHOS 96 U/L (46-116); ALT (SGPT) < 6 U/L (14-59); ANION GAP 5 (6-14); AST (SGOT) 14 U/L (15-37); BLOOD UREA NITROGEN 29 mg/dL (7-20); BUN/CREATININE RATIO 11 (6-20); CALCIUM 8.1 mg/dL (8.5-10.1); CARBON DIOXIDE 29 mmol/L (21-32); CHLORIDE 101 mmol/L (98-107); CREATININE 2.7 mg/dL (0.6-1.0); GFR 20.5; GLUCOSE 149 mg/dL (70-99); MAGNESIUM 2.2 mg/dL (1.8-2.4); PHOSPHORUS 3.8 mg/dL (2.6-4.7); POTASSIUM 5.1 mmol/L (3.5-5.1); SODIUM 135 mmol/L (136-145); TOTAL BILIRUBIN 0.3 mg/dL (0.2-1.0); TOTAL PROTEIN 6.6 g/dL (6.4-8.2)
[2017-09-16] MEDS: VANCOMYCIN PER PHARMACY MC (11:32)
[2017-09-16] MEDS: GENTAMICIN PER PHARMACY. MC ×2 (12:08→12:09)
[2017-09-16] MEDS: TPN PER PHARMACY MC (13:23)
[2017-09-16] MEDS: CETIRIZINE HCL 10 MG TABLET. PO (19:36)
[2017-09-16] MEDS: fentaNYL PF VIAL 100 MCG/2 ML VIAL IV (20:27)
[2017-09-16] MEDS: PATCH REMOVAL. MC (21:00)
[2017-09-16] MEDS: AMINO ACIDS IV ×2 (22:00)
[2017-09-16] MEDS: DEXTROSE 70% IV ×2 (22:00)
[2017-09-16] MEDS: [UNRECOGNIZED DRUG - OTHER] IV ×2 (22:00)
[2017-09-16] MEDS: TOTAL PARENTERAL NUTRITION IV ×2 (22:00)
[2017-09-17] MEDS: METOPROLOL TARTRATE 5 MG/5 ML VIAL. IVP ×5 (00:47→23:16)
[2017-09-17] MEDS: hydrALAZINE 20 MG/ML VIAL. IVP ×5 (00:48→23:14)
[2017-09-17 04:23] LABS: POC GLUCOSE 167 mg/dL (70-99)
[2017-09-17 04:23] LABS: POC GLUCOSE 167 mg/dL (70-99)
[2017-09-17 04:27] LABS: POC GLUCOSE 97 mg/dL (70-99)
[2017-09-17] MEDS: PANTOPRAZOLE IV PUSH 40 MG VIAL. IVP (06:29)
[2017-09-17] MEDS: fentaNYL PF VIAL 100 MCG/2 ML VIAL IV ×3 (06:30→21:23)
[2017-09-17 06:35] LABS: POC GLUCOSE 150 mg/dL (70-99)
[2017-09-17 06:48] LABS: ADD MAN DIFF? NO
[2017-09-17 07:11] LABS: ALBUMIN 1.5 g/dL (3.4-5.0); ALBUMIN/GLOBULIN RATIO 0.3 (1.0-1.7); ALK PHOS 113 U/L (46-116); ANION GAP 8 (6-14); AST (SGOT) 18 U/L (15-37); BLOOD UREA NITROGEN 36 mg/dL (7-20); BUN/CREATININE RATIO 11 (6-20); CALCIUM 7.9 mg/dL (8.5-10.1); CARBON DIOXIDE 26 mmol/L (21-32); CHLORIDE 100 mmol/L (98-107); CREATININE 3.3 mg/dL (0.6-1.0); GFR 16.2; GLUCOSE 115 mg/dL (70-99); MAGNESIUM 2.1 mg/dL (1.8-2.4); PHOSPHORUS 4.5 mg/dL (2.6-4.7); POTASSIUM 5.5 mmol/L (3.5-5.1); SODIUM 134 mmol/L (136-145); TOTAL BILIRUBIN 0.4 mg/dL (0.2-1.0); TOTAL PROTEIN 6.9 g/dL (6.4-8.2)
[2017-09-17 07:13] LABS: ALT (SGPT) < 6 U/L (14-59)
[2017-09-17 07:33] LABS: BASO # 0.2 x10^3/uL (0.0-0.2); BASO % 1 % (0-3); EOS % 0 % (0-3); HEMATOCRIT 30.9 % (36.0-47.0); HEMOGLOBIN 9.6 g/dL (12.0-15.5); LYMPH # 1.4 x10^3/uL (1.0-4.8); LYMPH % 8 % (24-48); MEAN CORPUSCULAR HEMOGLOBIN 24 pg (25-35); MEAN CORPUSCULAR HGB CONC 31 g/dL (31-37); MEAN CORPUSCULAR VOLUME 78 fL (79-100); MONO # 3.8 x10^3/uL (0.0-1.1); MONO % 20 % (0-9); NEUT # 13.2 x10^3uL (1.8-7.7); NEUT % 71 % (31-73); PLATELET COUNT 379 x10^3/uL (140-400); RED BLOOD COUNT 3.97 x10^6/uL (3.50-5.40); RED CELL DISTRIBUTION WIDTH 18.7 % (11.5-14.5); WHITE BLOOD COUNT 18.5 x10^3/uL (4.0-11.0)
[2017-09-17] MEDS ORDERED: IV NORMAL SALINE 1000ML BAG 1,000 ML IV ×2 (07:56)
[2017-09-17] MEDS ORDERED: DIALYSIS PATIENT. MC ×2 (08:00)
[2017-09-17] MEDS: ASPIRIN ENTERIC COATED 81 MG TABLET.DR. PO (08:00)
[2017-09-17] MEDS ORDERED: 0.9 % SODIUM CHLORIDE 10 ML DISP.SYRIN. IV (08:00)
[2017-09-17] MEDS: IPRATRPIUM/ALBUTEROL 0.5/2.5MG 3 ML NEBU. NEB ×4 (08:39→20:07)
[2017-09-17] MEDS: NORMAL SALINE IVP (08:44)
[2017-09-17] MEDS: LIDOCAINE (700MG/PATCH) PATCH. TD (08:44)
[2017-09-17] MEDS: LEVOTHYROXINE SODIUM IVP (08:44)
[2017-09-17] MEDS: TIMOLOL 0.25% OPHTH SOLUTION 5ML BOTTLE. OD ×2 (09:00→21:00)
[2017-09-17] MEDS: HEPARIN PF for SUB-Q USE 5,000 UNIT/0.5 ML VIAL. SQ ×2 (09:00→21:36)
[2017-09-17] MEDS: CHOLECALCIFEROL (VITAMIN D3) 1,000 UNIT TABLET PO (09:00)
[2017-09-17] MEDS: TPN PER PHARMACY MC (14:42)
[2017-09-17] MEDS: GENTAMICIN PER PHARMACY. MC (14:54)
[2017-09-17] MEDS: VANCOMYCIN PER PHARMACY MC (14:56)
[2017-09-17] MEDS: GENTAMICIN SULFATE IV (17:49)
[2017-09-17] MEDS: NORMAL SALINE IV (17:49)
[2017-09-17 18:08] LABS: POC GLUCOSE 118 mg/dL (70-99)
[2017-09-17] MEDS: VANCOMYCIN 500 MG in IV NORMAL SALINE 100ML 100 ML IV (18:53)
[2017-09-17] MEDS: CETIRIZINE HCL 10 MG TABLET. PO (19:49)
[2017-09-17] MEDS: PATCH REMOVAL. MC (21:00)
[2017-09-17] MEDS: DEXTROSE 70% IV (21:30)
[2017-09-17] MEDS: AMINO ACIDS IV (21:30)
[2017-09-17] MEDS: TOTAL PARENTERAL NUTRITION IV (21:30)
[2017-09-17] MEDS: [UNRECOGNIZED DRUG - OTHER] IV (21:30)
[2017-09-18 05:00] LABS: POC GLUCOSE 107 mg/dL (70-99)
[2017-09-18] MEDS: METOPROLOL TARTRATE 5 MG/5 ML VIAL. IVP ×3 (06:20→17:52)
[2017-09-18] MEDS: hydrALAZINE 20 MG/ML VIAL. IVP ×3 (06:22→17:53)
[2017-09-18] MEDS: IPRATRPIUM/ALBUTEROL 0.5/2.5MG 3 ML NEBU. NEB ×4 (07:13→20:49)
[2017-09-18] MEDS: GENTAMICIN PER PHARMACY. MC (07:36)
[2017-09-18] MEDS: VANCOMYCIN PER PHARMACY MC (07:40)
[2017-09-18] MEDS: ASPIRIN ENTERIC COATED 81 MG TABLET.DR. PO (08:00)
[2017-09-18] MEDS: CHOLECALCIFEROL (VITAMIN D3) 1,000 UNIT TABLET PO (09:00)
[2017-09-18] MEDS: TIMOLOL 0.25% OPHTH SOLUTION 5ML BOTTLE. OD ×2 (09:00→21:00)
[2017-09-18] MEDS: PANTOPRAZOLE IV PUSH 40 MG VIAL. IVP (09:10)
[2017-09-18] MEDS: LIDOCAINE (700MG/PATCH) PATCH. TD (09:11)
[2017-09-18] MEDS: NORMAL SALINE IVP (09:11)
[2017-09-18] MEDS: LEVOTHYROXINE SODIUM IVP (09:11)
[2017-09-18] MEDS: cloNIDine TTS-3 1 PATCH PATCH.TDWK TD (09:12)
[2017-09-18 09:25] LABS: ADD MAN DIFF? NO
[2017-09-18 09:27] LABS: BASO # 0.1 x10^3/uL (0.0-0.2); BASO % 1 % (0-3); EOS % 0 % (0-3); HEMATOCRIT 28.9 % (36.0-47.0); HEMOGLOBIN 9.1 g/dL (12.0-15.5); LYMPH # 1.2 x10^3/uL (1.0-4.8); LYMPH % 6 % (24-48); MEAN CORPUSCULAR HEMOGLOBIN 24 pg (25-35); MEAN CORPUSCULAR HGB CONC 31 g/dL (31-37); MEAN CORPUSCULAR VOLUME 77 fL (79-100); MONO # 5.8 x10^3/uL (0.0-1.1); MONO % 29 % (0-9); NEUT # 12.9 x10^3uL (1.8-7.7); NEUT % 64 % (31-73); PLATELET COUNT 397 x10^3/uL (140-400); RED BLOOD COUNT 3.74 x10^6/uL (3.50-5.40); RED CELL DISTRIBUTION WIDTH 18.6 % (11.5-14.5); WHITE BLOOD COUNT 20.2 x10^3/uL (4.0-11.0)
[2017-09-18] MEDS: HEPARIN PF for SUB-Q USE 5,000 UNIT/0.5 ML VIAL. SQ ×2 (09:30→21:41)
[2017-09-18 09:43] LABS: ALBUMIN 1.4 g/dL (3.4-5.0); ALBUMIN/GLOBULIN RATIO 0.3 (1.0-1.7); ALK PHOS 99 U/L (46-116); ALT (SGPT) < 6 U/L (14-59); ANION GAP 8 (6-14); AST (SGOT) 17 U/L (15-37); BLOOD UREA NITROGEN 21 mg/dL (7-20); BUN/CREATININE RATIO 9 (6-20); CALCIUM 7.7 mg/dL (8.5-10.1); CARBON DIOXIDE 28 mmol/L (21-32); CHLORIDE 100 mmol/L (98-107); CREATININE 2.3 mg/dL (0.6-1.0); GFR 24.6; GLUCOSE 155 mg/dL (70-99); POTASSIUM 4.4 mmol/L (3.5-5.1); SODIUM 136 mmol/L (136-145); TOTAL BILIRUBIN 0.3 mg/dL (0.2-1.0); TOTAL PROTEIN 6.3 g/dL (6.4-8.2)
[2017-09-18] MEDS: TPN PER PHARMACY MC (09:54)
[2017-09-18 12:17] LABS: POC GLUCOSE 138 mg/dL (70-99)
[2017-09-18] MEDS: ACETAMINOPHEN 325 MG SUPP.RECT. PR (13:56)
[2017-09-18] MEDS: PATCH REMOVAL. MC (21:00)
[2017-09-18] MEDS: [UNRECOGNIZED DRUG - OTHER] IV (21:41)
[2017-09-18] MEDS: TOTAL PARENTERAL NUTRITION IV (21:41)
[2017-09-18] MEDS: DEXTROSE 70% IV (21:41)
[2017-09-18] MEDS: AMINO ACIDS IV (21:41)
[2017-09-19 00:31] LABS: POC GLUCOSE 131 mg/dL (70-99)
[2017-09-19] MEDS: hydrALAZINE 20 MG/ML VIAL. IVP ×3 (00:41→16:18)
[2017-09-19] MEDS: METOPROLOL TARTRATE 5 MG/5 ML VIAL. IVP ×3 (00:42→16:17)
[2017-09-19] MEDS: fentaNYL PF VIAL 100 MCG/2 ML VIAL IV (01:55)
[2017-09-19 05:32] LABS: POC GLUCOSE 159 mg/dL (70-99)
[2017-09-19 06:18] LABS: ADD MAN DIFF? NO
[2017-09-19 06:25] LABS: BASO # 0.1 x10^3/uL (0.0-0.2); BASO % 1 % (0-3); EOS % 0 % (0-3); HEMATOCRIT 30.1 % (36.0-47.0); HEMOGLOBIN 9.4 g/dL (12.0-15.5); LYMPH # 1.4 x10^3/uL (1.0-4.8); LYMPH % 6 % (24-48); MEAN CORPUSCULAR HEMOGLOBIN 24 pg (25-35); MEAN CORPUSCULAR HGB CONC 31 g/dL (31-37); MEAN CORPUSCULAR VOLUME 76 fL (79-100); MONO # 5.3 x10^3/uL (0.0-1.1); MONO % 22 % (0-9); NEUT % 72 % (31-73); PLATELET COUNT 449 x10^3/uL (140-400); RED BLOOD COUNT 3.93 x10^6/uL (3.50-5.40); RED CELL DISTRIBUTION WIDTH 18.4 % (11.5-14.5); WHITE BLOOD COUNT 23.8 x10^3/uL (4.0-11.0)
[2017-09-19 06:32] LABS: ALBUMIN 1.5 g/dL (3.4-5.0); ALBUMIN/GLOBULIN RATIO 0.3 (1.0-1.7); ALK PHOS 109 U/L (46-116); ANION GAP 9 (6-14); AST (SGOT) 16 U/L (15-37); BLOOD UREA NITROGEN 33 mg/dL (7-20); BUN/CREATININE RATIO 11 (6-20); CALCIUM 7.9 mg/dL (8.5-10.1); CARBON DIOXIDE 27 mmol/L (21-32); CHLORIDE 100 mmol/L (98-107); CREATININE 2.9 mg/dL (0.6-1.0); GFR 18.8; GLUCOSE 168 mg/dL (70-99); POTASSIUM 3.9 mmol/L (3.5-5.1); SODIUM 136 mmol/L (136-145); TOTAL BILIRUBIN 0.3 mg/dL (0.2-1.0); TOTAL PROTEIN 6.8 g/dL (6.4-8.2)
[2017-09-19 06:35] LABS: ALT (SGPT) < 6 U/L (14-59)
[2017-09-19] MEDS: IPRATRPIUM/ALBUTEROL 0.5/2.5MG 3 ML NEBU. NEB ×3 (07:39→15:45)
[2017-09-19] MEDS: TIMOLOL 0.25% OPHTH SOLUTION 5ML BOTTLE. OD (09:00)
[2017-09-19] MEDS ORDERED: 0.9 % SOD CHL for STERILE FIELD 10 ML DISP.SYRIN. (09:35)
[2017-09-19] MEDS: ASPIRIN 300 MG SUPP.RECT PR (09:40)
[2017-09-19] MEDS ORDERED: IV NORMAL SALINE 1000ML BAG 1,000 ML IV ×2 (11:30)
[2017-09-19] MEDS ORDERED: DIALYSIS PATIENT. MC ×2 (14:30)
[2017-09-19] MEDS: LIDOCAINE (700MG/PATCH) PATCH. TD (16:09)
[2017-09-19] MEDS: NORMAL SALINE IVP (16:14)
[2017-09-19] MEDS: LEVOTHYROXINE SODIUM IVP (16:14)
[2017-09-19] MEDS: PANTOPRAZOLE IV PUSH 40 MG VIAL. IVP (16:21)
[2017-09-19] MEDS: HEPARIN PF for SUB-Q USE 5,000 UNIT/0.5 ML VIAL. SQ (16:26)
[2017-09-19] MEDS: VANCOMYCIN 500 MG in IV NORMAL SALINE 100ML 100 ML IV (16:28)
== END 2017-09-19 17:57 | DRG 853 ==
LOC: 5 SOUTH 09-16 10:08 → 2 SOUTH 09-10 20:09 → ER 18:11 → 5 NORTH 19:20
PROC: 0B9F8ZX Drainage of Right Lower Lung Lobe, Via Natural or Artificial Opening Endoscopic, Diagnostic (ICD-10-PCS; principal; 2017-09-10 10:00)
PROC: 0B9G8ZX Drainage of Left Upper Lung Lobe, Via Natural or Artificial Opening Endoscopic, Diagnostic (ICD-10-PCS; 2017-09-10 10:00)
PROC: 02HV33Z Insertion of Infusion Device into Superior Vena Cava, Percutaneous Approach (ICD-10-PCS; 2017-09-10 10:29)
PROC: 5A1D70Z Performance of Urinary Filtration, Intermittent, Less than 6 Hours Per Day (ICD-10-PCS; 2017-09-10 10:29)
PROC: 5A1D70Z Performance of Urinary Filtration, Intermittent, Less than 6 Hours Per Day (ICD-10-PCS; 2017-09-10 10:29)
PROC: 5A1D70Z Performance of Urinary Filtration, Intermittent, Less than 6 Hours Per Day (ICD-10-PCS; 2017-09-10 10:29)
PROC: 5A1D70Z Performance of Urinary Filtration, Intermittent, Less than 6 Hours Per Day (ICD-10-PCS; 2017-09-10 10:29)
DX: A41.02 Sepsis due to Methicillin resistant Staphylococcus aureus (principal); L89.93 Pressure ulcer of unspecified site, stage 3; J18.9 Pneumonia, unspecified organism; N18.6 End stage renal disease; G92 Toxic encephalopathy; I63.9 Cerebral infarction, unspecified; J96.01 Acute respiratory failure with hypoxia; E46 Unspecified protein-calorie malnutrition; I13.2 Hypertensive heart and chronic kidney disease with heart failure and with stage 5 chronic kidney disease, or end stage renal disease; I47.2 Ventricular tachycardia; I48.92 Unspecified atrial flutter; I82.622 Acute embolism and thrombosis of deep veins of left upper extremity; B96.20 Unspecified Escherichia coli [E. coli] as the cause of diseases classified elsewhere; B96.89 Other specified bacterial agents as the cause of diseases classified elsewhere; D64.9 Anemia, unspecified; E03.9 Hypothyroidism, unspecified; E11.22 Type 2 diabetes mellitus with diabetic chronic kidney disease; Z88.8 Allergy status to other drugs, medicaments and biological substances; E11.649 Type 2 diabetes mellitus with hypoglycemia without coma; E78.00 Pure hypercholesterolemia, unspecified; E78.5 Hyperlipidemia, unspecified; F03.90 Unspecified dementia, unspecified severity, without behavioral disturbance, psychotic disturbance, mood disturbance, and anxiety; H91.90 Unspecified hearing loss, unspecified ear; I25.10 Atherosclerotic heart disease of native coronary artery without angina pectoris; I27.21 Secondary pulmonary arterial hypertension; I48.91 Unspecified atrial fibrillation; I49.3 Ventricular premature depolarization; I50.9 Heart failure, unspecified; J98.09 Other diseases of bronchus, not elsewhere classified; K21.9 Gastro-esophageal reflux disease without esophagitis; K80.20 Calculus of gallbladder without cholecystitis without obstruction; N28.1 Cyst of kidney, acquired; R13.10 Dysphagia, unspecified; R62.7 Adult failure to thrive; Y95 Nosocomial condition; Z16.24 Resistance to multiple antibiotics; M19.90 Unspecified osteoarthritis, unspecified site; Z22.322 Carrier or suspected carrier of Methicillin resistant Staphylococcus aureus; Z51.5 Encounter for palliative care; F32.9 Major depressive disorder, single episode, unspecified; Z66 Do not resuscitate; Z86.73 Personal history of transient ischemic attack (TIA), and cerebral infarction without residual deficits; Z87.440 Personal history of urinary (tract) infections; Z88.0 Allergy status to penicillin; Z90.49 Acquired absence of other specified parts of digestive tract; Z91.041 Radiographic dye allergy status; Z99.2 Dependence on renal dialysis; Z90.710 Acquired absence of both cervix and uterus; Z87.01 Personal history of pneumonia (recurrent); Z68.25 Body mass index [BMI] 25.0-25.9, adult
CPT/HCPCS: 31622; 36415; 36569; 70450; 70551; 71045; 71250; 74176; 76770; 80048; 80053; 80069; 80170; 80202; 81001; 82306; 82607; 82947; 82962; 83605; 83735; 84100; 84145; 84443; 84478; 84484; 84550; 85007; 85025; 85027; 85610; 85651; 86704; 86705; 86706; 87040; 87070; 87086; 87102; 87116; 87186; 87205; 87324; 87340; 87641; 87899; 88112; 92526-GN; 92610-GN; 93005; 93880; 93971; 94640; 94760; 95816; 96365; 96375; 97110-GP; 97163-GP; 97166-GO; 97530-GO; 97530-GP; 99285; 99285-25; C8924; C9113; J0360; J0692; J0878; J1160; J1580; J2020; J2060; J2185; J2704; J3010; J3370; J3475; J3490; J7030; J7042; J7050; J7613; J7620